=== PATIENT | female | born 1945 | race Caucasian/White ===

== ENCOUNTER → 2016-11-12 | Outpatient (CLI) | payer MEDICARE, OTHER ==
[2016-11-12 15:26] LABS: ALBUMIN 3.4 GM/DL (3.2-5.2); ALBUMIN/GLOBULIN RATIO 0.97 (1.00-1.93); BILIRUBIN,TOTAL 0.4 MG/DL (0.2-1.0); CALCIUM LEVEL 9.3 MG/DL (8.8-10.2); CREATININE FOR GFR 0.97 MG/DL (0.55-1.02); GLOMERULAR FILTRATION RATE 59.9 (>39); POTASSIUM SERUM 4.5 MEQ/L (3.5-5.1); TOTAL PROTEIN 6.9 GM/DL (6.4-8.2)
== END ==
LOC: M WUC 12:34
PROVIDERS: ATTEND Internal Medicine
DX: E11.9 Type 2 diabetes mellitus without complications (principal)

== ENCOUNTER → 2017-05-09 | Outpatient (REF) | payer MEDICARE, OTHER | LOC: M SFHCPLAZ 12:51 | PROVIDERS: ATTEND Nurse Practitioner Adult Health | DX: R35.0 Frequency of micturition (principal) | CPT/HCPCS: 81002; 87086; G0463 ==

== ENCOUNTER → 2017-05-16 | Outpatient (CLI) | payer MEDICARE, OTHER ==
[2017-05-16 20:35] LABS: MEAN CORPUSCULAR HEMOGLOBIN 29.2 pg (27.0-33.0); MEAN CORPUSCULAR HGB CONC 33.9 g/dl (32.0-36.5); MEAN CORPUSCULAR VOLUME 86.2 fl (80.0-96.0); RED CELL DISTRIBUTION WIDTH 13.1 % (11.5-14.5); WHITE BLOOD COUNT 7.2 K/mm3 (4.0-10.0)
[2017-05-16 20:51] LABS: ALBUMIN 3.6 GM/DL (3.2-5.2); ALBUMIN/GLOBULIN RATIO 1.06 (1.00-1.93); ALKALINE PHOSPHATASE 83 U/L (45-117); ALT/SGPT 27 U/L (12-78); ANION GAP 8 MEQ/L (8-16); AST/SGOT 16 U/L (15-37); BILIRUBIN,TOTAL 0.5 MG/DL (0.2-1.0); BLOOD UREA NITROGEN 22 MG/DL (7-18); CALCIUM LEVEL 9.4 MG/DL (8.8-10.2); CARBON DIOXIDE LEVEL 25 MEQ/L (21-32); CHLORIDE LEVEL 108 MEQ/L (98-107); CHOLESTEROL LEVEL 201 MG/DL (<200); CREATININE FOR GFR 0.87 MG/DL (0.55-1.02); GLOMERULAR FILTRATION RATE > 60.0 (>39); GLUCOSE, FASTING 88 MG/DL (83-110); POTASSIUM SERUM 4.3 MEQ/L (3.5-5.1); SODIUM LEVEL 141 MEQ/L (136-145); TRIGLYCERIDES LEVEL 153 MG/DL (<150)
== END ==
LOC: M WUC 15:21
PROVIDERS: ATTEND Internal Medicine
DX: J30.9 Allergic rhinitis, unspecified (principal); E11.9 Type 2 diabetes mellitus without complications; E78.00 Pure hypercholesterolemia, unspecified; E03.9 Hypothyroidism, unspecified; Z11.59 Encounter for screening for other viral diseases; W57.XXXD Bitten or stung by nonvenomous insect and other nonvenomous arthropods, subsequent encounter; Y93.9 Activity, unspecified; Y92.9 Unspecified place or not applicable; Y99.8 Other external cause status

== ENCOUNTER → 2017-05-16 | Outpatient (CLI) | payer MEDICARE, OTHER ==
[2017-05-19 00:08] LABS: Lyme Disease IgG/IgM Antibodie <0.91 ISR (0.00-0.90); Lyme Disease IgM Ab Quantitati <0.80 index (0.00-0.79)
== END ==
LOC: M WUC 15:25
PROVIDERS: ATTEND Nurse Practitioner Adult Health
DX: Z11.59 Encounter for screening for other viral diseases (principal); W57.XXXD Bitten or stung by nonvenomous insect and other nonvenomous arthropods, subsequent encounter; X58.XXXD Exposure to other specified factors, subsequent encounter; Y93.9 Activity, unspecified; Y92.9 Unspecified place or not applicable; Y99.8 Other external cause status

== ENCOUNTER → 2017-07-10 | Outpatient (REF) | payer MEDICARE, OTHER | LOC: M SFHCPLAZ 16:42 | PROVIDERS: ATTEND Internal Medicine | DX: R53.83 Other fatigue (principal); E03.9 Hypothyroidism, unspecified ==

== ENCOUNTER → 2017-07-16 | Outpatient (CLI) | payer MEDICARE, OTHER ==
--- NOTE | 2017-07-20 06:46 | SLEEPCENT ---
DATE OF PROCEDURE: 07/16/2017 ORDERED BY: Dr. Payan Diagnostic home sleep testing was performed due to concern for the obstructive sleep apnea syndrome. For testng, NOX-T3 respiratory monitoring device. Continuous record was made of pulse, oxygen saturation, air flow, chest and abdominal strain, and body position. 9 hours and 59 minutes of data were reviewed. Of these, 8 hours and 1 minute were marked as time in bed. During the interval marked time in bed, there were 139 respiratory events identified of 10 seconds in duration or greater for a respiratory event index of 17.3. The events were primarily obstructive. Baseline saturation 89%. Lowest oxygen saturation 76%. Baseline pulse rate 62 beats per minute. Pulse rate ranged 55-80. Testing was performed in both the supine and non-supine positions. IMPRESSION: Abnormal home sleep testing with repetitive respiratory events and oxygen desaturations to 76% with a respiratory event index of 17.3 is consistent with the obstructive sleep apnea syndrome. RECOMMENDATION: The patient should be encouraged to undergo formal sleep evaluation and in-laboratory pressure titration particularly in light of oxygen desaturations as there are not addressed by the use of variable home devices.
== END ==
LOC: M SLEEP HO 13:50
PROVIDERS: ATTEND Internal Medicine
DX: R53.83 Other fatigue (principal)

== ENCOUNTER → 2017-07-19 | Outpatient (CLI) | payer MEDICARE, OTHER ==
[2017-07-19 20:29] LABS: VITAMIN B12 LEVEL 838 PG/ML (247-911)
[2017-07-19 20:30] LABS: FOLATE > 24.0 NG/ML (>5.4)
== END ==
LOC: M WUC 17:36
PROVIDERS: ATTEND Internal Medicine
DX: R53.83 Other fatigue (principal); E03.9 Hypothyroidism, unspecified

== ENCOUNTER → 2017-10-25 | Outpatient (CLI) | payer MEDICARE, OTHER | LOC: M SLEEP 19:47 | DX: G47.33 Obstructive sleep apnea (adult) (pediatric) (principal) | CPT/HCPCS: 95811 ==

== ENCOUNTER → 2017-11-21 | Outpatient (REF) | payer MEDICARE, OTHER ==
[2017-11-21 13:33] LABS: ESTIMATED AVERAGE GLUCOSE 143 MG/DL (60-110); HEMOGLOBIN A1c 6.6 %
[2017-11-21 13:54] LABS: ALBUMIN 3.6 GM/DL (3.2-5.2); ALBUMIN/GLOBULIN RATIO 0.97 (1.00-1.93); ALKALINE PHOSPHATASE 101 U/L (45-117); ALT/SGPT 26 U/L (12-78); ANION GAP 5 MEQ/L (8-16); AST/SGOT 16 U/L (7-37); BILIRUBIN,TOTAL 0.4 MG/DL (0.2-1.0); BLOOD UREA NITROGEN 21 MG/DL (7-18); CALCIUM LEVEL 9.1 MG/DL (8.8-10.2); CARBON DIOXIDE LEVEL 29 MEQ/L (21-32); CHLORIDE LEVEL 108 MEQ/L (98-107); CHOLESTEROL LEVEL 195 MG/DL (<200); CREATININE FOR GFR 0.82 MG/DL (0.55-1.02); GLOMERULAR FILTRATION RATE > 60.0 (>39); GLUCOSE, FASTING 105 MG/DL (70-100); HDL CHOLESTEROL 37 MG/DL (>40); LDL CHOLESTEROL 117.8 MG/DL (<100); MAGNESIUM LEVEL 2.2 MG/DL (1.8-2.4); NON-HDL-C 158 MG/DL; POTASSIUM SERUM 4.5 MEQ/L (3.5-5.1); SODIUM LEVEL 142 MEQ/L (136-145); THYROID STIMULATING HORMONE 0.424 uIU/ML (0.358-3.740); TOTAL PROTEIN 7.3 GM/DL (6.4-8.2); TRIGLYCERIDES LEVEL 201 MG/DL (<150)
[2017-11-21 14:22] LABS: APPEARANCE, URINE HAZY (CLEAR); BACTERIA, URINE AUTO 1+ (NEGATIVE); BILIRUBIN, URINE AUTO NEGATIVE (NEGATIVE); BLOOD, URINE BLOOD NEGATIVE (NEGATIVE); COLOR, URINE YELLOW (YELLOW); GLUCOSE, URINE (UA) AUTO NEGATIVE (NEGATIVE); KETONE, URINE AUTO NEGATIVE (NEGATIVE); LEUKOCYTE ESTERASE, URINE AUTO 3+ (NEGATIVE); MUCUS, URINE SMALL (NEGATIVE); NITRITE, URINE AUTO NEGATIVE (NEGATIVE); PROTEIN, URINE AUTO NEGATIVE (NEGATIVE); RBC, URINE AUTO 4 /HPF (0-3); SQUAMOUS EPITHELIAL CELL UR AU 1 /HPF (0-6); TRANSITIONAL EPITHELIAL AUTO 1 /HPF; UROBILINOGEN, URINE AUTO 0.2 mg/dL (0.0-2.0); WBC, URINE AUTO 18 /HPF (0-3)
[2017-11-21 14:36] LABS: MAU/CREAT RATIO 11.5 MCG/MG (0.0-30.0)
[2017-11-21 22:03] LABS: TOTAL 25(OH) VITAMIN D 76.4 NG/ML (30.0-100.0)
== END ==
LOC: M SFHCPLAZ 11:16
DX: Z00.00 Encounter for general adult medical examination without abnormal findings (principal); N32.89 Other specified disorders of bladder; E11.9 Type 2 diabetes mellitus without complications; R60.0 Localized edema; E78.00 Pure hypercholesterolemia, unspecified; E55.9 Vitamin D deficiency, unspecified; E03.9 Hypothyroidism, unspecified; Z79.82 Long term (current) use of aspirin; Z79.899 Other long term (current) drug therapy
CPT/HCPCS: 83735

== ENCOUNTER → 2018-01-03 | Outpatient (CLI) | payer MEDICARE, OTHER ==
[2018-01-03 19:23] LABS: HEMATOCRIT 44.1 % (36.0-47.0); HEMOGLOBIN 14.1 g/dl (12.0-16.0); MEAN CORPUSCULAR HEMOGLOBIN 28.2 pg (27.0-33.0); MEAN CORPUSCULAR VOLUME 88.2 fl (80.0-96.0); PLATELET COUNT, AUTOMATED 233 10^3/uL (150-450); RED CELL DISTRIBUTION WIDTH 13.1 % (11.5-14.5); WHITE BLOOD COUNT 6.8 10^3/uL (4.0-10.0)
[2018-01-03 19:33] LABS: ANION GAP 8 MEQ/L (8-16); BLOOD UREA NITROGEN 25 MG/DL (7-18); CALCIUM LEVEL 9.6 MG/DL (8.8-10.2); CARBON DIOXIDE LEVEL 28 MEQ/L (21-32); CHLORIDE LEVEL 111 MEQ/L (98-107); CREATININE FOR GFR 1.07 MG/DL (0.55-1.30); GLOMERULAR FILTRATION RATE 53.4 (>39); GLUCOSE, FASTING 114 MG/DL (70-100); POTASSIUM SERUM 4.2 MEQ/L (3.5-5.1); SODIUM LEVEL 147 MEQ/L (136-145)
== END ==
LOC: M WUC 15:34
DX: J32.0 Chronic maxillary sinusitis (principal)
CPT/HCPCS: 80048

== ENCOUNTER → 2018-05-17 | Outpatient (CLI) | payer MEDICARE, OTHER ==
[2018-05-17 13:02] LABS: HEMATOCRIT 42.7 % (36.0-47.0); HEMOGLOBIN 13.9 g/dl (12.0-15.5); MEAN CORPUSCULAR HEMOGLOBIN 28.2 pg (27.0-33.0); MEAN CORPUSCULAR HGB CONC 32.6 g/dl (32.0-36.5); MEAN CORPUSCULAR VOLUME 86.6 fl (80.0-96.0); PLATELET COUNT, AUTOMATED 210 10^3/uL (150-450); RED BLOOD COUNT 4.93 10^6/uL (4.00-5.40); RED CELL DISTRIBUTION WIDTH 13.6 % (11.5-14.5); WHITE BLOOD COUNT 6.9 10^3/uL (4.0-10.0)
[2018-05-17 13:18] LABS: ALBUMIN 3.4 GM/DL (3.2-5.2); ALBUMIN/GLOBULIN RATIO 0.97 (1.00-1.93); ALKALINE PHOSPHATASE 93 U/L (45-117); ALT/SGPT 26 U/L (12-78); ANION GAP 7 MEQ/L (8-16); AST/SGOT 15 U/L (7-37); BILIRUBIN,TOTAL 0.3 MG/DL (0.2-1.0); BLOOD UREA NITROGEN 18 MG/DL (7-18); CARBON DIOXIDE LEVEL 29 MEQ/L (21-32); CHLORIDE LEVEL 108 MEQ/L (98-107); CHOLESTEROL LEVEL 194 MG/DL (<200); CHOLESTEROL RISK RATIO 5.105 (<5); CREATININE FOR GFR 0.96 MG/DL (0.55-1.30); GLOMERULAR FILTRATION RATE > 60.0 (>39); GLUCOSE, FASTING 118 MG/DL (70-100); HDL CHOLESTEROL 38 MG/DL (>40); LDL CHOLESTEROL 116.4 MG/DL (<100); NON-HDL-C 156 MG/DL; POTASSIUM SERUM 4.4 MEQ/L (3.5-5.1); SODIUM LEVEL 144 MEQ/L (136-145); TOTAL PROTEIN 6.9 GM/DL (6.4-8.2); TRIGLYCERIDES LEVEL 198 MG/DL (<150)
[2018-05-17 13:29] LABS: ESTIMATED AVERAGE GLUCOSE 146 MG/DL (60-110); HEMOGLOBIN A1c 6.7 %
== END ==
LOC: M WUC 09:10
DX: J30.9 Allergic rhinitis, unspecified (principal); E11.9 Type 2 diabetes mellitus without complications; E78.00 Pure hypercholesterolemia, unspecified; G47.33 Obstructive sleep apnea (adult) (pediatric)
CPT/HCPCS: 80053

== ENCOUNTER → 2018-07-03 | Outpatient (CLI) | payer MEDICARE, OTHER | LOC: M WUC 17:23 | DX: R06.02 Shortness of breath (principal) | CPT/HCPCS: 71046 ==

== ENCOUNTER 2018-07-04 11:43 | Inpatient (IN) | payer MEDICARE, OTHER ==
[2018-07-04] MEDS: ONDANSETRON 4MG/2ML VIAL (J2405) IV (12:00)
[2018-07-04] MEDS: NS 500 ML IV (12:00)
[2018-07-04 12:15] LABS: VENOUS BASE EXCESS -0.1 (-2.0-2.0); VENOUS HCO3 25.3 MEQ/L (23.0-27.0); VENOUS O2 SATURATION 83.4 % (60.0-80.0); VENOUS PARTIAL PRESSURE CO2 43.8 mmHg (38.0-50.0); VENOUS PARTIAL PRESSURE O2 46.9 mmHg (30.0-50.0); VENOUS PH 7.379 UNITS (7.330-7.430); VENOUS STANDARD HCO3 24.1 MEQ/L; VENOUS TOTAL CO2 26.6 MEQ/L (24.0-28.0)
[2018-07-04 12:16] LABS: BASO % 0.4 % (0.0-1.0); EOS # 0.1 10^3/uL (0.0-0.50); HEMATOCRIT 37.9 % (36.0-47.0); HEMOGLOBIN 12.5 g/dl (12.0-15.5); IMMATURE GRANULOCYTE % 0.4 % (0-3.0); LYMPH # 0.5 10^3/uL (1.5-4.5); LYMPH % 9.3 % (24.0-44.0); MEAN CORPUSCULAR HEMOGLOBIN 28.7 pg (27.0-33.0); MEAN CORPUSCULAR VOLUME 86.9 fl (80.0-96.0); MONO # 1.8 10^3/uL (0.0-0.8); MONO % 33.7 % (0.0-5.0); NEUTROPHILS # 2.9 10^3/uL (1.8-7.7); NEUTROPHILS % 55.2 % (36.0-66.0); PLATELET COUNT, AUTOMATED 169 10^3/uL (150-450); RED BLOOD COUNT 4.36 10^6/uL (4.00-5.40); RED CELL DISTRIBUTION WIDTH 13.3 % (11.5-14.5); WHITE BLOOD COUNT 5.3 10^3/uL (4.0-10.0)
[2018-07-04 12:33] LABS: PROTHROMBIN TIME 14.3 SECONDS (12.1-14.4)
[2018-07-04 12:46] LABS: LACTIC ACID SEPSIS PROTOCOL 1.2 MMOL/L (0.4-2.0)
[2018-07-04 12:46] LABS: ALBUMIN 3.1 GM/DL (3.2-5.2); ALBUMIN/GLOBULIN RATIO 0.82 (1.00-1.93); ALKALINE PHOSPHATASE 91 U/L (45-117); ALT/SGPT 30 U/L (12-78); ANION GAP 12 MEQ/L (8-16); AST/SGOT 22 U/L (7-37); BILIRUBIN,DIRECT < 0.1 MG/DL (0.0-0.2); BILIRUBIN,TOTAL 0.3 MG/DL (0.2-1.0); BLOOD UREA NITROGEN 18 MG/DL (7-18); CALCIUM LEVEL 8.5 MG/DL (8.8-10.2); CARBON DIOXIDE LEVEL 24 MEQ/L (21-32); CHLORIDE LEVEL 105 MEQ/L (98-107); CPK CREATINE PHOSPHOKINASE 214 U/L (26-192); CREATININE FOR GFR 0.97 MG/DL (0.55-1.30); GLOMERULAR FILTRATION RATE 59.8 (>39); GLUCOSE, FASTING 139 MG/DL (70-100); POTASSIUM SERUM 3.6 MEQ/L (3.5-5.1); SODIUM LEVEL 141 MEQ/L (136-145); TOTAL PROTEIN 6.9 GM/DL (6.4-8.2); TROPONIN I 0.02 NG/ML (< 0.10)
[2018-07-04 12:52] LABS: CK-MB VALUE MASS < 1.0 NG/ML (<3.6); MB/CK RELATIVE INDEX 0.46 (< OR =4); NT-PRO BNP 1754 PG/ML (<125); THYROID STIMULATING HORMONE 0.272 uIU/ML (0.358-3.740)
[2018-07-04] MEDS: MORPHINE 2 MG/ML 1ML SYRINGE (J2270) IV ×2 (12:56→14:30)
[2018-07-04] MEDS ORDERED: ISOVUE-370 76% 100ML VIAL (Q9967) As Ordered (13:10)
[2018-07-04] MEDS: ALBUTEROL SULFATE 2.5 MG/0.5 ML INH NEB SOLN INH (13:18)
[2018-07-04] MEDS ORDERED: GLUCAGON FOR INJ 1 MG VIAL (J1610) SC (16:15)
[2018-07-04] MEDS ORDERED: ACETAMINOPHEN TAB 650MG DOSE (2X325MG) PO (16:15)
[2018-07-04] MEDS ORDERED: DEXTROSE 50% 50 ML SYRINGE IV (16:15)
[2018-07-04] MEDS ORDERED: PERCOCET 5MG/325MG TAB PO (16:15)
[2018-07-04] MEDS ORDERED: GLUCOSE 4 GM CHEW TABLET PO (16:15)
[2018-07-04] MEDS ORDERED: PANTOPRAZOLE 40MG TAB (PROTONIX) PO (16:15)
[2018-07-04] MEDS ORDERED: ALBUTEROL SULFATE 2.5 MG/0.5 ML INH NEB SOLN NEB (16:15)
[2018-07-04 16:34] LABS: CONTROL LINE MONO INT CTR LINE PRESENT; MONO SCRN NEGATIVE (NEGATIVE)
[2018-07-04 16:40] LABS: C REACTIVE PROTEIN QUANTITATIV 2.05 MG/DL (0.00-0.30); FREE THYROXINE INDEX 2.6 % (1.3-4.8); IMMUNOGLOBULIN E 35.5 IU/ML (<100); T UPTAKE 36 % (30-39); THYROXINE (T4) 7.1 UG/DL (4.5-12.0)
[2018-07-04 17:14] LABS: CK-MB VALUE MASS < 1.0 NG/ML (<3.6); CPK CREATINE PHOSPHOKINASE 276 U/L (26-192); MB/CK RELATIVE INDEX 0.36 (< OR =4); TROPONIN I 0.02 NG/ML (< 0.10)
[2018-07-04] MEDS: HumaLOG INSULIN (NovoLOG) PER UNIT SC (17:30)
[2018-07-04] MEDS: methylPREDNISolone INJ 125 MG/2 ML VIAL (J2930) IV (18:29)
[2018-07-04 20:25] LABS: BEDSIDE GLUCOSE 100 MG/DL (83-110)
[2018-07-04] MEDS: ALBUTEROL SULFATE 2.5 MG/0.5 ML INH NEB SOLN NEB (20:35)
[2018-07-04] MEDS: guaiFENesin ER 600 MG TAB PO (21:10)
[2018-07-04] MEDS: BENZONATATE 100 MG CAP PO (21:11)
[2018-07-04] MEDS: MORPHINE 4 MG/ML 1ML VIAL/SYRINGE (J2270) IV (21:12)
[2018-07-04] MEDS: SENOKOT S TAB PO (21:13)
[2018-07-04] MEDS: TIMOLOL MALEATE 0.5% OPHTH SOLN 5 ML OU (22:21)
[2018-07-04 22:50] LABS: CK-MB VALUE MASS < 1.0 NG/ML (<3.6); CPK CREATINE PHOSPHOKINASE 299 U/L (26-192); MB/CK RELATIVE INDEX 0.33 (< OR =4); TROPONIN I < 0.02 NG/ML (< 0.10)
[2018-07-05] MEDS: ALBUTEROL SULFATE 2.5 MG/0.5 ML INH NEB SOLN NEB ×6 (00:27→21:03)
[2018-07-05] MEDS: MORPHINE 4 MG/ML 1ML VIAL/SYRINGE (J2270) IV (04:30)
[2018-07-05 06:03] LABS: HEMATOCRIT 37.8 % (36.0-47.0); HEMOGLOBIN 12.4 g/dl (12.0-15.5); MEAN CORPUSCULAR HEMOGLOBIN 28.2 pg (27.0-33.0); MEAN CORPUSCULAR HGB CONC 32.8 g/dl (32.0-36.5); MEAN CORPUSCULAR VOLUME 85.9 fl (80.0-96.0); PLATELET COUNT, AUTOMATED 166 10^3/uL (150-450); RED CELL DISTRIBUTION WIDTH 13.4 % (11.5-14.5); WHITE BLOOD COUNT 3.9 10^3/uL (4.0-10.0)
[2018-07-05 06:18] LABS: ANION GAP 9 MEQ/L (8-16); BLOOD UREA NITROGEN 15 MG/DL (7-18); CALCIUM LEVEL 8.5 MG/DL (8.8-10.2); CARBON DIOXIDE LEVEL 25 MEQ/L (21-32); CHLORIDE LEVEL 106 MEQ/L (98-107); CREATININE FOR GFR 0.89 MG/DL (0.55-1.30); GLOMERULAR FILTRATION RATE > 60.0 (>39); GLUCOSE, FASTING 179 MG/DL (70-100); POTASSIUM SERUM 4.2 MEQ/L (3.5-5.1); SODIUM LEVEL 140 MEQ/L (136-145)
[2018-07-05] MEDS: LEVOTHYROXINE 150MCG TABLET (0.15MG) PO (06:24)
[2018-07-05] MEDS: methylPREDNISolone INJ 125 MG/2 ML VIAL (J2930) IV ×2 (06:24→17:39)
[2018-07-05] MEDS: BENZONATATE 100 MG CAP PO (06:38)
[2018-07-05] MEDS: FIORICET TAB PO (06:39)
[2018-07-05 06:52] LABS: ESTIMATED AVERAGE GLUCOSE 146 MG/DL (60-110); HEMOGLOBIN A1c 6.7 %
[2018-07-05] MEDS: BUDESONIDE 0.25 MG/2 ML INHALATION SUSPENSION INH (07:19)
[2018-07-05] MEDS: guaiFENesin ER 600 MG TAB PO ×3 (09:00→20:44)
[2018-07-05] MEDS: HumaLOG INSULIN (NovoLOG) PER UNIT SC ×3 (09:56→17:39)
[2018-07-05] MEDS: CO-ENZYME Q10 50 MG CAP PO (09:56)
[2018-07-05] MEDS: OMEGA-3 1050MG CAPSULE PO (09:57)
[2018-07-05] MEDS: CYANOCOBALAMIN 500 MCG TAB PO (09:57)
[2018-07-05] MEDS: VITAMIN D 1,000 INTERNATIONAL UNITS TABLET PO (09:57)
[2018-07-05] MEDS: ASPIRIN 325 MG TAB PO (09:57)
[2018-07-05] MEDS: MULTIVITAMINS/MINERALS THERAP 1 TAB PO (09:57)
[2018-07-05] MEDS: SENOKOT S TAB PO ×3 (09:57→20:45)
[2018-07-05] MEDS: TIMOLOL MALEATE 0.5% OPHTH SOLN 5 ML OU ×2 (09:58→20:45)
[2018-07-05] MEDS: ENOXAPARIN 40 MG/0.4 ML SYRINGE (J1650) SC (09:58)
[2018-07-05 11:33] LABS: BEDSIDE GLUCOSE 292 MG/DL (83-110)
[2018-07-05] MEDS: OSELTAMIVIR PHOSPHATE 75 MG CAP (TAMIFLU) PO ×2 (13:10→20:45)
[2018-07-05] MEDS: VITAMIN D 50,000 UNITS CAPSULE (ERGOCALCIFEROL 1.25MG) PO (13:10)
[2018-07-05] MEDS: ONDANSETRON 4MG/2ML VIAL (J2405) IV (17:39)
[2018-07-05] MEDS ORDERED: DEXTROMETHORPHAN 60MG/10ML SUSP 90ML BTL(DELSYM) PO (21:15)
[2018-07-06] MEDS: ALBUTEROL SULFATE 2.5 MG/0.5 ML INH NEB SOLN NEB ×6 (04:00→20:05)
[2018-07-06] MEDS: methylPREDNISolone INJ 125 MG/2 ML VIAL (J2930) IV (05:55)
[2018-07-06] MEDS: LEVOTHYROXINE 150MCG TABLET (0.15MG) PO (05:55)
[2018-07-06 05:59] LABS: HEMOGLOBIN 13.4 g/dl (12.0-15.5); MEAN CORPUSCULAR HEMOGLOBIN 28.3 pg (27.0-33.0); MEAN CORPUSCULAR HGB CONC 32.7 g/dl (32.0-36.5); MEAN CORPUSCULAR VOLUME 86.5 fl (80.0-96.0); PLATELET COUNT, AUTOMATED 185 10^3/uL (150-450); RED BLOOD COUNT 4.74 10^6/uL (4.00-5.40); RED CELL DISTRIBUTION WIDTH 13.4 % (11.5-14.5)
[2018-07-06 06:11] LABS: ANION GAP 9 MEQ/L (8-16); BLOOD UREA NITROGEN 22 MG/DL (7-18); CALCIUM LEVEL 9.5 MG/DL (8.8-10.2); CARBON DIOXIDE LEVEL 25 MEQ/L (21-32); CHLORIDE LEVEL 108 MEQ/L (98-107); CREATININE FOR GFR 1.06 MG/DL (0.55-1.30); GLOMERULAR FILTRATION RATE 53.9 (>39); GLUCOSE, FASTING 204 MG/DL (70-100); MAGNESIUM LEVEL 2.3 MG/DL (1.8-2.4); POTASSIUM SERUM 4.3 MEQ/L (3.5-5.1); SODIUM LEVEL 142 MEQ/L (136-145)
[2018-07-06] MEDS: BUDESONIDE 0.25 MG/2 ML INHALATION SUSPENSION INH (07:37)
[2018-07-06] MEDS: TIMOLOL MALEATE 0.5% OPHTH SOLN 5 ML OU ×2 (08:46→19:58)
[2018-07-06] MEDS: OMEGA-3 1050MG CAPSULE PO (08:47)
[2018-07-06] MEDS: CO-ENZYME Q10 50 MG CAP PO (08:47)
[2018-07-06] MEDS: ASPIRIN 325 MG TAB PO (08:47)
[2018-07-06] MEDS: CYANOCOBALAMIN 500 MCG TAB PO (08:48)
[2018-07-06] MEDS: OSELTAMIVIR PHOSPHATE 75 MG CAP (TAMIFLU) PO ×2 (08:48→19:57)
[2018-07-06] MEDS: SENOKOT S TAB PO ×2 (08:48→19:57)
[2018-07-06] MEDS: MULTIVITAMINS/MINERALS THERAP 1 TAB PO (08:48)
[2018-07-06] MEDS: VITAMIN D 1,000 INTERNATIONAL UNITS TABLET PO (08:49)
[2018-07-06] MEDS: ENOXAPARIN 40 MG/0.4 ML SYRINGE (J1650) SC (08:50)
[2018-07-06] MEDS: HumaLOG INSULIN (NovoLOG) PER UNIT SC ×3 (09:18→18:31)
[2018-07-06] MEDS: predniSONE 20 MG TAB PO (10:50)
[2018-07-07] MEDS: ALBUTEROL SULFATE 2.5 MG/0.5 ML INH NEB SOLN NEB ×6 (04:00→21:40)
[2018-07-07] MEDS: LEVOTHYROXINE 150MCG TABLET (0.15MG) PO (05:31)
[2018-07-07 06:18] LABS: HEMATOCRIT 38.6 % (36.0-47.0); HEMOGLOBIN 12.5 g/dl (12.0-15.5); MEAN CORPUSCULAR HEMOGLOBIN 28.3 pg (27.0-33.0); MEAN CORPUSCULAR HGB CONC 32.4 g/dl (32.0-36.5); MEAN CORPUSCULAR VOLUME 87.5 fl (80.0-96.0); PLATELET COUNT, AUTOMATED 178 10^3/uL (150-450); RED BLOOD COUNT 4.41 10^6/uL (4.00-5.40); RED CELL DISTRIBUTION WIDTH 13.8 % (11.5-14.5)
[2018-07-07 06:34] LABS: ANION GAP 7 MEQ/L (8-16); BLOOD UREA NITROGEN 26 MG/DL (7-18); CALCIUM LEVEL 9.2 MG/DL (8.8-10.2); CARBON DIOXIDE LEVEL 25 MEQ/L (21-32); CHLORIDE LEVEL 109 MEQ/L (98-107); CREATININE FOR GFR 0.83 MG/DL (0.55-1.30); GLOMERULAR FILTRATION RATE > 60.0 (>39); GLUCOSE, FASTING 113 MG/DL (70-100); MAGNESIUM LEVEL 2.3 MG/DL (1.8-2.4); POTASSIUM SERUM 4.1 MEQ/L (3.5-5.1); SODIUM LEVEL 141 MEQ/L (136-145)
[2018-07-07 07:33] LABS: BEDSIDE GLUCOSE 112 MG/DL (83-110)
[2018-07-07 07:34] LABS: BEDSIDE GLUCOSE 280 MG/DL (83-110)
[2018-07-07 07:34] LABS: BEDSIDE GLUCOSE 187 MG/DL (83-110)
[2018-07-07 07:34] LABS: BEDSIDE GLUCOSE 123 MG/DL (83-110)
[2018-07-07 07:35] LABS: BEDSIDE GLUCOSE 112 MG/DL (83-110)
[2018-07-07] MEDS: BUDESONIDE 0.25 MG/2 ML INHALATION SUSPENSION INH (07:42)
[2018-07-07] MEDS: CYANOCOBALAMIN 500 MCG TAB PO (08:16)
[2018-07-07] MEDS: CO-ENZYME Q10 50 MG CAP PO (08:16)
[2018-07-07] MEDS: ASPIRIN 325 MG TAB PO (08:16)
[2018-07-07] MEDS: predniSONE 20 MG TAB PO (08:16)
[2018-07-07] MEDS: OSELTAMIVIR PHOSPHATE 75 MG CAP (TAMIFLU) PO ×2 (08:16→21:13)
[2018-07-07] MEDS: OMEGA-3 1050MG CAPSULE PO (08:16)
[2018-07-07] MEDS: VITAMIN D 1,000 INTERNATIONAL UNITS TABLET PO (08:16)
[2018-07-07] MEDS: SENOKOT S TAB PO ×2 (08:16→21:13)
[2018-07-07] MEDS: HumaLOG INSULIN (NovoLOG) PER UNIT SC ×3 (08:17→17:47)
[2018-07-07] MEDS: MULTIVITAMINS/MINERALS THERAP 1 TAB PO (08:17)
[2018-07-07] MEDS: ENOXAPARIN 40 MG/0.4 ML SYRINGE (J1650) SC (08:17)
[2018-07-07] MEDS: TIMOLOL MALEATE 0.5% OPHTH SOLN 5 ML OU ×2 (08:17→21:14)
[2018-07-07] MEDS: ONDANSETRON 4MG/2ML VIAL (J2405) IV (08:30)
[2018-07-07] MEDS: METAMUCIL (PSYLLIUM) PACKET PO (21:52)
[2018-07-08] MEDS: ALBUTEROL SULFATE 2.5 MG/0.5 ML INH NEB SOLN NEB ×6 (04:00→20:34)
[2018-07-08] MEDS: LEVOTHYROXINE 150MCG TABLET (0.15MG) PO (05:35)
[2018-07-08 07:17] LABS: HEMATOCRIT 39.1 % (36.0-47.0); HEMOGLOBIN 12.6 g/dl (12.0-15.5); MEAN CORPUSCULAR HEMOGLOBIN 28.3 pg (27.0-33.0); MEAN CORPUSCULAR HGB CONC 32.2 g/dl (32.0-36.5); MEAN CORPUSCULAR VOLUME 87.7 fl (80.0-96.0); PLATELET COUNT, AUTOMATED 165 10^3/uL (150-450); RED BLOOD COUNT 4.46 10^6/uL (4.00-5.40); RED CELL DISTRIBUTION WIDTH 13.6 % (11.5-14.5); WHITE BLOOD COUNT 8.5 10^3/uL (4.0-10.0)
[2018-07-08] MEDS: HumaLOG INSULIN (NovoLOG) PER UNIT SC ×3 (07:30→17:32)
[2018-07-08 07:33] LABS: ANION GAP 8 MEQ/L (8-16); BLOOD UREA NITROGEN 19 MG/DL (7-18); CALCIUM LEVEL 8.6 MG/DL (8.8-10.2); CARBON DIOXIDE LEVEL 27 MEQ/L (21-32); CHLORIDE LEVEL 108 MEQ/L (98-107); CREATININE FOR GFR 0.82 MG/DL (0.55-1.30); GLOMERULAR FILTRATION RATE > 60.0 (>39); GLUCOSE, FASTING 100 MG/DL (70-100); MAGNESIUM LEVEL 2.1 MG/DL (1.8-2.4); SODIUM LEVEL 143 MEQ/L (136-145)
[2018-07-08] MEDS: BUDESONIDE 0.25 MG/2 ML INHALATION SUSPENSION INH (07:59)
[2018-07-08] MEDS: VITAMIN D 1,000 INTERNATIONAL UNITS TABLET PO (08:27)
[2018-07-08] MEDS: MULTIVITAMINS/MINERALS THERAP 1 TAB PO (08:27)
[2018-07-08] MEDS: SENOKOT S TAB PO ×2 (08:27→21:12)
[2018-07-08] MEDS: OSELTAMIVIR PHOSPHATE 75 MG CAP (TAMIFLU) PO ×2 (08:27→21:12)
[2018-07-08] MEDS: CO-ENZYME Q10 50 MG CAP PO (08:27)
[2018-07-08] MEDS: predniSONE 20 MG TAB PO (08:27)
[2018-07-08] MEDS: ASPIRIN 325 MG TAB PO (08:27)
[2018-07-08] MEDS: TIMOLOL MALEATE 0.5% OPHTH SOLN 5 ML OU ×2 (08:28→21:00)
[2018-07-08] MEDS: CYANOCOBALAMIN 500 MCG TAB PO (08:28)
[2018-07-08] MEDS: ENOXAPARIN 40 MG/0.4 ML SYRINGE (J1650) SC (08:28)
[2018-07-08] MEDS: OMEGA-3 1050MG CAPSULE PO (08:28)
[2018-07-08] MEDS: METAMUCIL (PSYLLIUM) PACKET PO (18:50)
[2018-07-09] MEDS: ALBUTEROL SULFATE 2.5 MG/0.5 ML INH NEB SOLN NEB ×6 (03:38→21:26)
[2018-07-09 06:15] LABS: HEMATOCRIT 38.8 % (36.0-47.0); HEMOGLOBIN 12.7 g/dl (12.0-15.5); MEAN CORPUSCULAR HEMOGLOBIN 28.3 pg (27.0-33.0); MEAN CORPUSCULAR HGB CONC 32.7 g/dl (32.0-36.5); MEAN CORPUSCULAR VOLUME 86.6 fl (80.0-96.0); PLATELET COUNT, AUTOMATED 179 10^3/uL (150-450); RED BLOOD COUNT 4.48 10^6/uL (4.00-5.40); RED CELL DISTRIBUTION WIDTH 13.5 % (11.5-14.5); WHITE BLOOD COUNT 6.3 10^3/uL (4.0-10.0)
[2018-07-09] MEDS: LEVOTHYROXINE 150MCG TABLET (0.15MG) PO (06:16)
[2018-07-09 06:35] LABS: ANION GAP 7 MEQ/L (8-16); BLOOD UREA NITROGEN 14 MG/DL (7-18); CALCIUM LEVEL 8.9 MG/DL (8.8-10.2); CARBON DIOXIDE LEVEL 29 MEQ/L (21-32); CHLORIDE LEVEL 105 MEQ/L (98-107); GLOMERULAR FILTRATION RATE > 60.0 (>39); GLUCOSE, FASTING 98 MG/DL (70-100); MAGNESIUM LEVEL 2.1 MG/DL (1.8-2.4); POTASSIUM SERUM 3.8 MEQ/L (3.5-5.1); SODIUM LEVEL 141 MEQ/L (136-145)
[2018-07-09] MEDS: BUDESONIDE 0.25 MG/2 ML INHALATION SUSPENSION INH (07:09)
[2018-07-09] MEDS: HumaLOG INSULIN (NovoLOG) PER UNIT SC ×3 (08:01→16:49)
[2018-07-09] MEDS: SENOKOT S TAB PO ×2 (08:31→20:43)
[2018-07-09] MEDS: OMEGA-3 1050MG CAPSULE PO (08:31)
[2018-07-09] MEDS: CYANOCOBALAMIN 500 MCG TAB PO (08:31)
[2018-07-09] MEDS: MULTIVITAMINS/MINERALS THERAP 1 TAB PO (08:31)
[2018-07-09] MEDS: ASPIRIN 325 MG TAB PO (08:31)
[2018-07-09] MEDS: predniSONE 20 MG TAB PO (08:31)
[2018-07-09] MEDS: CO-ENZYME Q10 50 MG CAP PO (08:31)
[2018-07-09] MEDS: ENOXAPARIN 40 MG/0.4 ML SYRINGE (J1650) SC (08:31)
[2018-07-09] MEDS: VITAMIN D 1,000 INTERNATIONAL UNITS TABLET PO (08:31)
[2018-07-09] MEDS: OSELTAMIVIR PHOSPHATE 75 MG CAP (TAMIFLU) PO (08:31)
[2018-07-09] MEDS: TIMOLOL MALEATE 0.5% OPHTH SOLN 5 ML OU ×2 (08:32→20:43)
[2018-07-09] MEDS: MIRALAX *UNIT DOSE* 17GM PACKET PO (12:07)
[2018-07-09] MEDS: MOM 30ML SUSPENSION UDC PO (16:50)
[2018-07-09] MEDS: MAGNESIUM CITRATE 300 ML BTL PO (17:17)
[2018-07-09 17:41] LABS: BEDSIDE GLUCOSE 255 MG/DL (83-110)
[2018-07-09 17:41] LABS: BEDSIDE GLUCOSE 194 MG/DL (83-110)
[2018-07-09 17:41] LABS: BEDSIDE GLUCOSE 124 MG/DL (83-110)
[2018-07-09 17:41] LABS: BEDSIDE GLUCOSE 229 MG/DL (83-110)
[2018-07-09 17:42] LABS: BEDSIDE GLUCOSE 243 MG/DL (83-110)
[2018-07-09 17:42] LABS: BEDSIDE GLUCOSE 224 MG/DL (83-110)
[2018-07-09] MEDS: **hydrALAZINE** 10 MG TAB PO (22:08)
[2018-07-10] MEDS: FUROSEMIDE 20 MG/2 ML VIAL (J1940) IV (00:26)
[2018-07-10] MEDS: ALBUTEROL SULFATE 2.5 MG/0.5 ML INH NEB SOLN NEB ×3 (04:00→08:00)
[2018-07-10] MEDS: LEVOTHYROXINE 150MCG TABLET (0.15MG) PO (05:40)
[2018-07-10 06:45] LABS: HEMATOCRIT 40.5 % (36.0-47.0); HEMOGLOBIN 13.3 g/dl (12.0-15.5); MEAN CORPUSCULAR HEMOGLOBIN 28.2 pg (27.0-33.0); MEAN CORPUSCULAR HGB CONC 32.8 g/dl (32.0-36.5); MEAN CORPUSCULAR VOLUME 85.8 fl (80.0-96.0); PLATELET COUNT, AUTOMATED 203 10^3/uL (150-450); RED BLOOD COUNT 4.72 10^6/uL (4.00-5.40); RED CELL DISTRIBUTION WIDTH 13.3 % (11.5-14.5); WHITE BLOOD COUNT 7.2 10^3/uL (4.0-10.0)
[2018-07-10 07:10] LABS: ANION GAP 9 MEQ/L (8-16); BLOOD UREA NITROGEN 15 MG/DL (7-18); CALCIUM LEVEL 8.9 MG/DL (8.8-10.2); CARBON DIOXIDE LEVEL 30 MEQ/L (21-32); CHLORIDE LEVEL 104 MEQ/L (98-107); CREATININE FOR GFR 0.73 MG/DL (0.55-1.30); GLOMERULAR FILTRATION RATE > 60.0 (>39); GLUCOSE, FASTING 115 MG/DL (70-100); MAGNESIUM LEVEL 2.6 MG/DL (1.8-2.4); SODIUM LEVEL 143 MEQ/L (136-145)
[2018-07-10] MEDS: BUDESONIDE 0.25 MG/2 ML INHALATION SUSPENSION INH (08:00)
[2018-07-10] MEDS: HumaLOG INSULIN (NovoLOG) PER UNIT SC ×3 (08:11→17:26)
[2018-07-10] MEDS: CYANOCOBALAMIN 500 MCG TAB PO (08:11)
[2018-07-10] MEDS: ASPIRIN 325 MG TAB PO (08:11)
[2018-07-10] MEDS: VITAMIN D 1,000 INTERNATIONAL UNITS TABLET PO (08:11)
[2018-07-10] MEDS: SENOKOT S TAB PO ×2 (08:12→19:34)
[2018-07-10] MEDS: TIMOLOL MALEATE 0.5% OPHTH SOLN 5 ML OU ×2 (08:12→19:34)
[2018-07-10] MEDS: OMEGA-3 1050MG CAPSULE PO (08:12)
[2018-07-10] MEDS: MULTIVITAMINS/MINERALS THERAP 1 TAB PO (08:12)
[2018-07-10] MEDS: ENOXAPARIN 40 MG/0.4 ML SYRINGE (J1650) SC (08:12)
[2018-07-10] MEDS: CO-ENZYME Q10 50 MG CAP PO (08:12)
[2018-07-10] MEDS: MIRALAX *UNIT DOSE* 17GM PACKET PO (08:13)
[2018-07-10 16:58] LABS: BEDSIDE GLUCOSE 110 MG/DL (83-110)
[2018-07-10 16:58] LABS: BEDSIDE GLUCOSE 116 MG/DL (83-110)
[2018-07-11] MEDS: ALBUTEROL 90 MCG/ACT 8GM HFA INHALER INH ×2 (04:23→12:00)
[2018-07-11] MEDS: LEVOTHYROXINE 150MCG TABLET (0.15MG) PO (05:44)
[2018-07-11 06:34] LABS: HEMATOCRIT 41.4 % (36.0-47.0); HEMOGLOBIN 13.6 g/dl (12.0-15.5); MEAN CORPUSCULAR HGB CONC 32.9 g/dl (32.0-36.5); MEAN CORPUSCULAR VOLUME 85.2 fl (80.0-96.0); PLATELET COUNT, AUTOMATED 204 10^3/uL (150-450); RED BLOOD COUNT 4.86 10^6/uL (4.00-5.40); RED CELL DISTRIBUTION WIDTH 13.6 % (11.5-14.5); WHITE BLOOD COUNT 8.3 10^3/uL (4.0-10.0)
[2018-07-11 07:00] LABS: ANION GAP 8 MEQ/L (8-16); BLOOD UREA NITROGEN 22 MG/DL (7-18); CARBON DIOXIDE LEVEL 27 MEQ/L (21-32); CHLORIDE LEVEL 105 MEQ/L (98-107); CREATININE FOR GFR 0.82 MG/DL (0.55-1.30); GLOMERULAR FILTRATION RATE > 60.0 (>39); GLUCOSE, FASTING 113 MG/DL (70-100); MAGNESIUM LEVEL 2.7 MG/DL (1.8-2.4); POTASSIUM SERUM 3.9 MEQ/L (3.5-5.1); SODIUM LEVEL 140 MEQ/L (136-145)
[2018-07-11] MEDS: ASPIRIN 325 MG TAB PO (08:00)
[2018-07-11] MEDS: CO-ENZYME Q10 50 MG CAP PO (08:00)
[2018-07-11] MEDS: HumaLOG INSULIN (NovoLOG) PER UNIT SC ×2 (08:00→11:45)
[2018-07-11] MEDS: OMEGA-3 1050MG CAPSULE PO (08:01)
[2018-07-11] MEDS: ENOXAPARIN 40 MG/0.4 ML SYRINGE (J1650) SC (08:01)
[2018-07-11] MEDS: SENOKOT S TAB PO (08:01)
[2018-07-11] MEDS: VITAMIN D 1,000 INTERNATIONAL UNITS TABLET PO (08:01)
[2018-07-11] MEDS: CYANOCOBALAMIN 500 MCG TAB PO (08:01)
[2018-07-11] MEDS: MULTIVITAMINS/MINERALS THERAP 1 TAB PO (08:01)
[2018-07-11] MEDS: MIRALAX *UNIT DOSE* 17GM PACKET PO (08:01)
[2018-07-11] MEDS: TIMOLOL MALEATE 0.5% OPHTH SOLN 5 ML OU (08:01)
[2018-07-11 17:23] LABS: BEDSIDE GLUCOSE 110 MG/DL (83-110)
== END 2018-07-11 12:42 | disposition home or self-care (01) | DRG 195 ==
LOC: M ED 11:43 → M ED INP 16:19 → M MSPAV 17:38
DX: J10.1 Influenza due to other identified influenza virus with other respiratory manifestations (principal); J45.909 Unspecified asthma, uncomplicated; E66.9 Obesity, unspecified; G47.33 Obstructive sleep apnea (adult) (pediatric); E78.5 Hyperlipidemia, unspecified; E03.9 Hypothyroidism, unspecified; Z85.850 Personal history of malignant neoplasm of thyroid; Z88.8 Allergy status to other drugs, medicaments and biological substances; Z88.2 Allergy status to sulfonamides; Z79.899 Other long term (current) drug therapy; Z79.82 Long term (current) use of aspirin; H40.9 Unspecified glaucoma; R73.03 Prediabetes; R00.1 Bradycardia, unspecified

== ENCOUNTER → 2018-11-07 | Outpatient (REF) | payer MEDICARE, OTHER ==
[~2018-11-07] MED LIST: AMOX875T2 PO; ASPI325T PO; COEN100T PO; COQ-50CA2 PO; DRIS50003 PO; FIORCAP3 PO; FISH1000 PO; LEVO150T42 PO; LEVO150T7 PO; LOCO0.1C TOP; PANT40TA3 PO; PRED10PA2 PO; PROAAER10 INH; PROTPAK PO; PULM0.25 INH; PULM0.25 NEB; SYMB16INH INH; TIMO0.5S29 OU; TIMO0.5S42 OP; TRIA1OI TOP; VITA10002 PO; VITA100067 PO; VITA100L PO; VITA200015 PO; VITMTA PO
[2018-11-07 18:01] LABS: IMMUNOGLOBULIN M 31.3 MG/DL (40-230)
[2018-11-13 10:17] LABS: ANCA-ATYPICAL <1:20 titer (Neg:<1:20); ASPERGILLUS FUMIGATUS AB Negative (Negative); AUREOBASIDIUM PULLULANS Negative (Negative); CYTOPLASMIC NEUTROP AB ANCA-C <1:20 titer (Neg:<1:20); MICROPOLYSPORA FAENI AB Negative (Negative); PERINUCLEAR AB ANCA-P <1:20 titer (Neg:<1:20); PIGEON SERUM AB Negative (Negative); THERMOACTINOMYCES SACCHARI Negative (Negative); THERMOACTINOMYCES VULGARIS Negative (Negative)
== END ==
LOC: M LAB REF 16:58
PROVIDERS: ATTEND Internal Medicine Pulmonary Disease
DX: J32.4 Chronic pansinusitis (principal)

== ENCOUNTER → 2019-01-08 | Outpatient (CLI) | payer MEDICARE, OTHER ==
[2019-01-08 15:11] LABS: MALB URINE SIEMENS 22.7 MG/L; MAU/CREAT RATIO 18.1 MCG/MG (0.0-30.0)
[2019-01-08 15:29] LABS: ALBUMIN 3.4 GM/DL (3.2-5.2); ALT/SGPT 30 U/L (12-78); BILIRUBIN,TOTAL 0.5 MG/DL (0.2-1.0); BLOOD UREA NITROGEN 17 MG/DL (7-18); CALCIUM LEVEL 9.1 MG/DL (8.8-10.2); CARBON DIOXIDE LEVEL 27 MEQ/L (21-32); CHLORIDE LEVEL 109 MEQ/L (98-107); CHOLESTEROL LEVEL 203 MG/DL (<200); CHOLESTEROL RISK RATIO 4.951 (<5); CREATININE FOR GFR 0.92 MG/DL (0.55-1.30); GLOMERULAR FILTRATION RATE > 60.0 (>39); GLUCOSE, FASTING 106 MG/DL (70-100); HDL CHOLESTEROL 41 MG/DL (>40); LDL CHOLESTEROL 124 MG/DL (<100); NON-HDL-C 162 MG/DL; POTASSIUM SERUM 5.5 MEQ/L (3.5-5.1); SODIUM LEVEL 143 MEQ/L (136-145); TOTAL PROTEIN 7.2 GM/DL (6.4-8.2); TRIGLYCERIDES LEVEL 189 MG/DL (<150)
[2019-01-08 16:03] LABS: HEMOGLOBIN A1c 6.7 %
== END ==
LOC: M WUC 12:19
PROVIDERS: ATTEND Internal Medicine
DX: E11.9 Type 2 diabetes mellitus without complications (principal); E78.00 Pure hypercholesterolemia, unspecified; E03.9 Hypothyroidism, unspecified
CPT/HCPCS: 36415; 80053; 80061; 82043; 83036; 84443; G0463

== ENCOUNTER → 2019-02-13 | Outpatient (CLI) | payer MEDICARE, OTHER ==
[~2019-02-13] MED LIST changes: +ASPI-1 PO; -ASPI325T PO
[2019-02-13 19:27] LABS: BASO # 0.1 10^3/uL (0.0-0.2); BASO % 0.7 % (0.0-1.0); EOS # 0.2 10^3/uL (0.0-0.50); EOS % 2.3 % (0.0-3.0); HEMATOCRIT 41.3 % (36.0-47.0); HEMOGLOBIN 13.3 g/dl (12.0-15.5); LYMPH # 2.3 10^3/uL (1.5-4.5); LYMPH % 32.8 % (24.0-44.0); MEAN CORPUSCULAR HEMOGLOBIN 27.8 pg (27.0-33.0); MEAN CORPUSCULAR HGB CONC 32.2 g/dl (32.0-36.5); MEAN CORPUSCULAR VOLUME 86.4 fl (80.0-96.0); MONO % 14.5 % (0.0-5.0); NEUTROPHILS # 3.4 10^3/uL (1.8-7.7); NEUTROPHILS % 49.3 % (36.0-66.0); PLATELET COUNT, AUTOMATED 228 10^3/uL (150-450); RED BLOOD COUNT 4.78 10^6/uL (4.00-5.40); WHITE BLOOD COUNT 6.9 10^3/uL (4.0-10.0)
[2019-02-13 19:48] LABS: IMMUNOGLOBULIN E 16.6 IU/ML (<100); IMMUNOGLOBULIN M 35.8 MG/DL (40-230)
[2019-02-21 10:17] LABS: D001-IgE D pteronyssinus <0.10 kU/L (Class 0); E001-IgE Cat Epith/Dander < 0.10 kU/L (Class 0); E005-IgE Dog Dander < 0.10 kU/L (Class 0); G002-IgE Bermuda Grass < 0.10 kU/L (Class 0); G008-IgE Kentucky Bluegrass < 0.10 kU/L (Class 0); M001-IgE Penicillium chrysogen < 0.10 kU/L (Class 0); M002 IgE Cladosporium herbaru < 0.10 kU/L (Class 0); M003 IgE Aspergillus fumigatu < 0.10 kU/L (Class 0); M006-IgE Alternaria alternata < 0.10 kU/L (Class 0); T001-IgE Maple/Box Elder < 0.10 kU/L (Class 0); T003-IgE Common Silver Birch < 0.10 kU/L (Class 0); T006-IgE Cedar, Mountain < 0.10 kU/L (Class 0); T007-IgE Oak, White < 0.10 kU/L (Class 0); T008-IgE Elm, American < 0.10 kU/L (Class 0); T015-IgE Ash, White < 0.10 kU/L (Class 0); T041-IgE Hickory, White < 0.10 kU/L (Class 0); T070-IgE White Mulberry < 0.10 kU/L (Class 0); W001-IgE Ragweed, Short < 0.10 kU/L (Class 0); W009-IgE Plantain, English < 0.10 kU/L (Class 0); W014-IgE Pigweed, Rough < 0.10 kU/L (Class 0); W018-IgE Sheep Sorrel < 0.10 kU/L (Class 0)
== END ==
LOC: M WUC 16:47
PROVIDERS: ATTEND Internal Medicine Pulmonary Disease
DX: G47.33 Obstructive sleep apnea (adult) (pediatric) (principal); Z01.82 Encounter for allergy testing; E11.9 Type 2 diabetes mellitus without complications; E03.9 Hypothyroidism, unspecified; J45.30 Mild persistent asthma, uncomplicated

== ENCOUNTER → 2019-02-28 | Outpatient (CLI) | payer MEDICARE, OTHER ==
--- NOTE | 2019-02-28 18:52 | ECHO ---
DATE OF PROCEDURE: 02/28/2019 REFERRING PHYSICIAN: Polina Sarkar MD INDICATION: Obstructive sleep apnea. HEIGHT: 5 feet 6 inches WEIGHT: 230 pounds 2D MEASUREMENTS: Aortic annulus: 1.8 cm Aortic root: 3.4 cm Left atrium: 4.9 cm Ventricular septum: 1.21 cm Posterior wall: 1.19 cm Left ventricle diastole: 4.9 cm Inferior vena cava: 1.7 cm DOPPLER MEASUREMENTS: Aortic valve velocity: 138 cm/s LVOT velocity: 109 cm/s LVOT VTI: 25.1 cm Mitral E velocity: 100 cm/s Mitral A velocity: 97.0 cm/s Mitral deceleration time: 264 ms Very mild tricuspid regurgitation. Estimated right ventricle systolic pressure: 29 mmHg assuming a pressure of 5 mmHg. MITRAL ANNULAR TISSUE DOPPLER: E prime septal: 5.7 cm/s E prime lateral: 7.7 cm/s DESCRIPTION: Rhythm was sinus bradycardia. Image quality was fair. This was a 2D, M-mode, color flow Doppler and pulse wave Doppler examination and included mitral annular tissue Doppler. No pericardial effusion. CONCLUSIONS: 1. Borderline concentric left ventricle hypertrophy. Normal regional left ventricular (LV) wall motion and wall thickening. Normal LV systolic function. Left ventricular ejection fraction (LVEF) 65% by visual estimate. Grade 2 LV diastolic dysfunction (pseudo-normal LV filling pattern). Suggestive of elevated mean left atrial pressure. 2. Moderate left atrial dilatation. 3. Normal right ventricle size and systolic function. Suggestive of normal estimated right ventricle systolic pressure. 4. Moderate mitral annular calcification. No mitral stenosis or regurgitation. 5. Mild aortic valve sclerosis of a 3-cusp aortic valve. No aortic regurgitation. MTDD
== END ==
LOC: M CARPUL 10:30
PROVIDERS: ATTEND Internal Medicine Pulmonary Disease
DX: R00.1 Bradycardia, unspecified (principal)

== ENCOUNTER → 2019-03-17 | Outpatient (REF) | payer MEDICARE, OTHER ==
[2019-03-17 19:57] LABS: C REACTIVE PROTEIN QUANTITATIV < 0.30 MG/DL (0.00-0.30); COMPLEMENT C3 116 MG/DL (90-180); COMPLEMENT C4 19 MG/DL (10-40); RHEUMATOID FACTOR QUANT < 10.0 IU/ML (<15.0)
[2019-03-20 00:07] LABS: ANA (HEP2) Negative (.); CYCLIC CITRULLINATED PEPTIDE 7 units (0-19); RNP ANTIBODY 0.3 AI (0.0-0.9); SMITHS ANTIBODY < 0.2 AI (0.0-0.9); SSA SJOGRENS A <0.2 AI (0.0-0.9); SSB SJOGRENS B <0.2 AI (0.0-0.9)
== END ==
LOC: M LAB REF 17:25
PROVIDERS: ATTEND Internal Medicine Pulmonary Disease
DX: G47.33 Obstructive sleep apnea (adult) (pediatric) (principal)

== ENCOUNTER 2019-05-26 07:38 | Day surgery (SDC) | payer MEDICARE, OTHER ==
[~2019-05-26] VITALS: Ht 167.6 cm; Wt 103.4 kg
[~2019-05-26 07:38] MED LIST changes: +BREO1INH3 INH; +CYAN100049 PO; +LEVO175T2 PO; +NS 1,000 ML IV ONE; +PULM0.25; -PULM0.25 INH; -VITA10002 PO
[2019-05-26] MEDS ORDERED: ALBUTEROL SULFATE 2.5 MG/0.5 ML INH NEB SOLN As Ordered ONE (08:02)
[2019-05-26] MEDS ORDERED: ALBUTEROL SULFATE 2.5 MG/0.5 ML INH NEB SOLN INH ONE (08:30)
[2019-05-26] MEDS ORDERED: PROPOFOL 200 MG/20 ML VIAL As Ordered ONE ×3 (08:42→09:11)
--- NOTE | 2019-05-26 09:19 | ROOR ---
Patient Name: Blank Lo Procedure Date: 05/26/2019 8:40 AM Date of : 1945 Age: 73 Room: [facility] Gender: Female Note Status: Finalized Procedure: Colonoscopy Indications: Screening for colorectal malignant neoplasm Providers: Dusty MALDONADO MD Referring MD: Jj Payan MD Requesting Provider: Medicines: Monitored Anesthesia Care Complications: No immediate complications. Procedure: Pre-Anesthesia Assessment: - The heart rate, respiratory rate, oxygen saturations, blood pressure, adequacy of pulmonary ventilation, and response to care were monitored throughout the procedure. The Colonoscope was introduced through the anus and advanced to the terminal ileum, with identification of the appendiceal orifice and IC valve. The colonoscopy was technically difficult and complex due to multiple diverticula in the colon, restricted mobility of the colon and a tortuous colon. Successful completion of the procedure was aided by using manual pressure. The patient tolerated the procedure well. The quality of the bowel preparation was good. Findings: The perianal and digital rectal examinations were normal. A 4 mm polyp was found in the cecum. The polyp was sessile. The polyp was removed with a cold snare. Resection and retrieval were complete. A localized area of moderately erythematous mucosa was found at the splenic flexure. This was biopsied with a cold forceps for histology. Multiple small and large-mouthed diverticula were found in the sigmoid colon, descending colon, splenic flexure and transverse colon. There was evidence of diverticular spasm. Small Internal Hemorrhoids. Impression: - One 4 mm polyp in the cecum, removed with a cold snare. Resected and retrieved. - Erythematous granular mucosa at the splenic flexure. Biopsied. - Moderate diverticulosis in the sigmoid colon, in the descending colon, at the splenic flexure and in the transverse colon. There was evidence of diverticular spasm. - Small Internal Hemorrhoids. Recommendation: - Telephone endoscopist for pathology results in 2 weeks. - If the pathology report reveals adenomatous tissue, then repeat the colonoscopy for surveillance in 5 years. Dusty Maldonado MD Dusty MALDONADO MD 05/26/2019 9:19:37 AM Electronically signed by Dusty MALDONADO MD Number of Addenda: 0 Note Initiated On: 05/26/2019 8:40 AM Estimated Blood Loss: Estimated blood loss: none.
[2019-05-26 09:41] VITALS: BP 175/81
[2019-05-27] MEDS ORDERED: MELO15TA28 PO (11:48)
[2019-05-27] MEDS ORDERED: TRAV04OPD OU (13:03)
== END 2019-05-26 09:43 | disposition home or self-care (01) ==
LOC: M OPP 07:38
PROVIDERS: ATTEND Internal Medicine Gastroenterology
DX: Z12.11 Encounter for screening for malignant neoplasm of colon (principal); D12.0 Benign neoplasm of cecum; K63.89 Other specified diseases of intestine; K57.30 Diverticulosis of large intestine without perforation or abscess without bleeding; K64.8 Other hemorrhoids; Z85.850 Personal history of malignant neoplasm of thyroid; R00.8 Other abnormalities of heart beat; E03.9 Hypothyroidism, unspecified; K21.9 Gastro-esophageal reflux disease without esophagitis; R12 Heartburn; M19.90 Unspecified osteoarthritis, unspecified site; G43.909 Migraine, unspecified, not intractable, without status migrainosus; J45.909 Unspecified asthma, uncomplicated; G47.30 Sleep apnea, unspecified; Z88.2 Allergy status to sulfonamides; Z88.8 Allergy status to other drugs, medicaments and biological substances; Z79.82 Long term (current) use of aspirin; Z79.899 Other long term (current) drug therapy

== ENCOUNTER 2019-05-27 11:19 | Emergency (ER) | payer MEDICARE, OTHER ==
[~2019-05-27] VITALS: Ht 167.6 cm; Wt 104.5 kg
[~2019-05-27 11:19] MED LIST changes: -NS 1,000 ML IV ONE
[2019-05-27] MEDS ORDERED: MELO15TA28 PO (11:48)
[2019-05-27 12:43] LABS: BASO % 0.5 % (0.0-1.0); EOS # 0.2 10^3/uL (0.0-0.50); EOS % 3.6 % (0.0-3.0); HEMATOCRIT 39.9 % (36.0-47.0); HEMOGLOBIN 12.9 g/dl (12.0-15.5); LYMPH # 2.2 10^3/uL (1.5-4.5); LYMPH % 39.6 % (24.0-44.0); MEAN CORPUSCULAR HEMOGLOBIN 28.2 pg (27.0-33.0); MEAN CORPUSCULAR HGB CONC 32.3 g/dl (32.0-36.5); MEAN CORPUSCULAR VOLUME 87.3 fl (80.0-96.0); MONO # 0.9 10^3/uL (0.0-0.8); MONO % 15.9 % (0.0-5.0); NEUTROPHILS # 2.3 10^3/uL (1.8-7.7); NEUTROPHILS % 40.2 % (36.0-66.0); PLATELET COUNT, AUTOMATED 215 10^3/uL (150-450); RED BLOOD COUNT 4.57 10^6/uL (4.00-5.40); WHITE BLOOD COUNT 5.6 10^3/uL (4.0-10.0)
[2019-05-27] MEDS ORDERED: TRAV04OPD OU (13:03)
[2019-05-27 13:11] LABS: BLOOD UREA NITROGEN 16 MG/DL (7-18); CALCIUM LEVEL 9.3 MG/DL (8.8-10.2); CARBON DIOXIDE LEVEL 27 MEQ/L (21-32); CHLORIDE LEVEL 111 MEQ/L (98-107); CK-MB VALUE MASS 1.4 NG/ML (<3.6); CPK CREATINE PHOSPHOKINASE 91 U/L (26-192); CREATININE FOR GFR 0.81 MG/DL (0.55-1.30); GLOMERULAR FILTRATION RATE > 60.0 (>39); GLUCOSE, FASTING 108 MG/DL (70-100); MB/CK RELATIVE INDEX 1.54 (< OR =4); POTASSIUM SERUM 4.2 MEQ/L (3.5-5.1); SODIUM LEVEL 144 MEQ/L (136-145)
[2019-05-27] MEDS ORDERED: diazePAM 5 MG TAB PO ONE (13:15)
[2019-05-27] MEDS ORDERED: NS 500 ML IV ONE (13:15)
[2019-05-27] MEDS ORDERED: ISOVUE-370 76% 100ML VIAL (Q9967) As Ordered ONE (13:30)
--- NOTE | 2019-05-27 13:35 | REP ---
Clinical: Chest pain and dizziness . Comparison: 07/03/2018 . Technique: PA and lateral. Findings: The mediastinum and cardiac silhouette are normal. The lung mancini are clear and without acute consolidation, effusion, or pneumothorax. The skeletal structures are intact and normal. Impression: 1. No acute cardiopulmonary process. Electronically Signed by Waldo Baldwin MD 05/27/2019 01:27 P
--- NOTE | 2019-05-27 14:17 | REP ---
Clinical: Vertigo. Comparison: 10/18/2013. Findings: Age-related atrophy and microvascular ischemic changes are appreciated. The ventricles and sulci are symmetric. Pedersen-white differentiation is maintained. There is no evidence for acute intracranial hemorrhage, mass/mass effect, pathology or infarction. No extra-axial fluid collection. Calvarium is intact. This is a moderate to significant mucoperiosteal changes involving the visualized sinuses along with evidence for prior bilateral maxillary antrostomy. Mastoid air cells are clear. Impression: Age related atrophy and microvascular ischemic changes. No acute intracranial hemorrhage, infarction, or mass/mass effect. Chronic sinusitis and evidence for prior bilateral maxillary antrostomy. Electronically Signed by Waldo Baldwin MD 05/27/2019 02:09 P
--- NOTE | 2019-05-27 14:55 | REP ---
CT ANGIOGRAPHY OF THE NECK WITH IV CONTRAST: HISTORY: Waves of vertigo. "Brain does not feel right." Comparison head CT study is from earlier this date. CT CONTRAST DOSE: 100 mL of intravenous Isovue 370. CT ANGIOGRAPHIC FINDINGS: The thoracic aortic arch is remarkable only for some minimal atherosclerotic calcification. A bovine arch configuration is seen, which is common normal variant of no clinical significance. Great vessel origins are otherwise unremarkable. The common carotid arteries are widely patent and symmetric. There is atherosclerotic plaquing at the bifurcations bilaterally. On the left there is a high-grade focal stenosis in the proximal ICA due to mixed calcific and non-calcific plateau. This measures 85% stenosis. The external carotid artery is unremarkable on the left. On the right, there is minimal calcific plaquing. No significant ICA stenosis. The right internal carotid artery is tortuous coursing near the midline in the retropharyngeal soft tissues as it ascends in the neck. There is vascular calcification bilaterally in the carotid siphons but no other ICA stenosis is seen. The vertebral arteries are patent bilaterally and codominant. Normal IMPRESSION: Focal significant left ICA stenosis due to mixed plaquing, approximately 85%. Otherwise negative CT angiography of the carotids. Electronically Signed by Derrell Rodriguez MD 05/27/2019 03:39 P
--- NOTE | 2019-05-27 14:58 | REP ---
CT ANGIOGRAPHY OF THE BRAIN WITH IV CONTRAST: HISTORY: Waves a vertigo, "brain does not feel right." CT CONTRAST DOSE: 100 mL of intravenous Isovue [address] ANGIOGRAPHIC FINDINGS: The patient is status post nasoantral window procedure bilaterally. There is chronic mucosal thickening in the left maxillary sinus and in the left frontal sinuses. No intraorbital abnormality is seen. The distal vertebral arteries are patent and of equal size. Basilar artery is somewhat tortuous but appears widely patent without evidence of stenosis. The right posterior cerebral artery takes a persistent origin from the anterior circulation which is a common normal variant. The left posterior cerebral artery is unremarkable. Superior cerebellar arteries are normal and symmetric. The anterior and middle cerebral arteries are intact. There is no visible espinal aneurysm or evidence of arteriovenous malformation. There is fairly prominent dural calcification along the falx. Some vascular calcification is seen in the carotid siphons bilaterally, mild in degree. The sagittal sinus, straight sinus, and sigmoid sinuses appear patent and unremarkable. The right sigmoid sinus is smaller than the left. IMPRESSION: There is no significant intracranial arterial or venous abnormality. Electronically Signed by Derrell Rodriguez MD 05/27/2019 03:39 P
[2019-05-27] MEDS ORDERED: hydrALAZINE INJ 20 MG/ML VIAL IV ONE (15:15)
[2019-05-27 15:56] VITALS: BP 215/98
[2019-05-27] MEDS ORDERED: ACETAMINOPHEN TAB 650MG DOSE (2X325MG) PO PRN (16:45)
[2019-05-27 16:58] VITALS: BP 160/90
[2019-05-28] MEDS ORDERED: ENOXAPARIN 40 MG/0.4 ML SYRINGE (J1650) SC SCH (09:00)
--- NOTE | 2019-05-28 19:29 | ECGEPIP ---
[facility] - ED Test Date: 2019-05-27 Pat Name: JAMES ALFORD Department: Room: - Gender: Female [employer] Hand: : 1945 Requested By: Mary Jo Grayson Order Number: [id number] Reading MD: Mary Jo Grayson Measurements Intervals [place] Rate: 52 P: 62 [place]: 134 QRS: 46 QRSD: 88 T: 63 QT: 488 QTc: 457 Interpretive Statements SINUS BRADYCARDIA WITH SINUS ARRHYTHMIA SIMILAR 07/05/18 Electronically Signed on 05-28-2019 19:29:14 EDT by Mary Jo Grayson
== END 2019-05-27 18:50 | disposition short-term general hospital (02) ==
LOC: M ED 11:19 → UNDOADMOB 11:20 → M ED INP 11:20 → M ED 18:50
DX: I16.0 Hypertensive urgency (principal); R00.1 Bradycardia, unspecified; R11.0 Nausea; Z98.890 Other specified postprocedural states; E78.5 Hyperlipidemia, unspecified; E05.90 Thyrotoxicosis, unspecified without thyrotoxic crisis or storm; Z85.850 Personal history of malignant neoplasm of thyroid; Z88.2 Allergy status to sulfonamides; Z88.8 Allergy status to other drugs, medicaments and biological substances; Z88.1 Allergy status to other antibiotic agents; Z79.899 Other long term (current) drug therapy; Z79.82 Long term (current) use of aspirin
CPT/HCPCS: 70450; 70496; 70498; 71046; 80048; 81001; 82550; 82553; 85025; 93005; 96361; 96374; 99285; Q9967

== ENCOUNTER → 2019-06-16 | Outpatient (REF) | payer MEDICARE, OTHER ==
[~2019-06-16] MED LIST changes: +MELO15TA28 PO; +TRAV04OPD OU
[2019-06-16 13:54] LABS: HEMOGLOBIN 13.6 g/dl (12.0-15.5); MEAN CORPUSCULAR HEMOGLOBIN 28.5 pg (27.0-33.0); MEAN CORPUSCULAR HGB CONC 32.4 g/dl (32.0-36.5); MEAN CORPUSCULAR VOLUME 87.9 fl (80.0-96.0); PLATELET COUNT, AUTOMATED 204 10^3/uL (150-450); RED BLOOD COUNT 4.78 10^6/uL (4.00-5.40)
[2019-06-16 14:07] LABS: ALBUMIN 3.7 GM/DL (3.2-5.2); ALT/SGPT 27 U/L (12-78); BILIRUBIN,TOTAL 0.5 MG/DL (0.2-1.0); BLOOD UREA NITROGEN 23 MG/DL (7-18); CALCIUM LEVEL 9.7 MG/DL (8.8-10.2); CARBON DIOXIDE LEVEL 28 MEQ/L (21-32); CHLORIDE LEVEL 111 MEQ/L (98-107); CHOLESTEROL LEVEL 185 MG/DL (<200); CHOLESTEROL RISK RATIO 4.404 (<5); CREATININE FOR GFR 0.91 MG/DL (0.55-1.30); GLOMERULAR FILTRATION RATE > 60.0 (>39); GLUCOSE, FASTING 120 MG/DL (70-100); HDL CHOLESTEROL 42 MG/DL (>40); LDL CHOLESTEROL 116 MG/DL (<100); MAGNESIUM LEVEL 2.2 MG/DL (1.8-2.4); NON-HDL-C 143 MG/DL; POTASSIUM SERUM 4.2 MEQ/L (3.5-5.1); SODIUM LEVEL 144 MEQ/L (136-145); THYROID STIMULATING HORMONE 0.037 uIU/ML (0.358-3.740); TOTAL PROTEIN 7.4 GM/DL (6.4-8.2); TRIGLYCERIDES LEVEL 134 MG/DL (<150)
== END ==
LOC: M SFHCPLAZ 11:07
PROVIDERS: ATTEND Internal Medicine
DX: G47.33 Obstructive sleep apnea (adult) (pediatric) (principal); E11.9 Type 2 diabetes mellitus without complications; E78.00 Pure hypercholesterolemia, unspecified; K21.9 Gastro-esophageal reflux disease without esophagitis; E03.9 Hypothyroidism, unspecified

== ENCOUNTER → 2019-06-25 | Outpatient (CLI) | payer MEDICARE, OTHER ==
--- NOTE | 2019-07-03 12:56 | SLEEPHOME ---
DATE OF STUDY: 06/25/2019 ORDERED BY: Dr. Payan Diagnostic home sleep testing was performed due to concern for the obstructive sleep apnea syndrome. For testing a nocturnal T3 respiratory monitoring device was used. Continuous record was made of pulse, oxygen saturation, airflow, chest and abdominal strain and body position. 9 hours and 59 minutes of data were reviewed. There were 5 hours and 25 minutes marked as time in bed. During the interval marked time in bed, there were 104 respiratory events identified of 10 seconds in duration or greater for an respiratory event index of 19.1. The events were primarily obstructive. Baseline pulse rate 56. Pulse rate ranged 47-80. Baseline saturation was 91%. Saturations fell as low as 79%, and testing was performed in both the supine and nonsupine positions. IMPRESSION: Abnormal home sleep testing with repetitive respiratory events and oxygen desaturations to 79% with a respiratory event index of 19.1 is consistent with the obstructive sleep apnea syndrome. RECOMMENDATIONS: The patient should be encouraged to undergo formal sleep evaluation.
== END ==
LOC: M SLEEP HO 10:41
PROVIDERS: ATTEND Internal Medicine
DX: G47.30 Sleep apnea, unspecified (principal)

== ENCOUNTER → 2020-01-13 | Outpatient (REF) | payer MEDICARE, OTHER ==
[2020-01-13 18:41] LABS: ALBUMIN 3.8 GM/DL (3.2-5.2); BILIRUBIN,TOTAL 0.4 MG/DL (0.2-1.0); CALCIUM LEVEL 9.9 MG/DL (8.8-10.2); CHOLESTEROL RISK RATIO 5.711 (<5); CREATININE FOR GFR 1.2 MG/DL (0.55-1.30); GLOMERULAR FILTRATION RATE 46.5 (>39); MAGNESIUM LEVEL 2.4 MG/DL (1.8-2.4); POTASSIUM SERUM 4.4 MEQ/L (3.5-5.1); THYROID STIMULATING HORMONE 0.74 uIU/ML (0.358-3.740); TOTAL PROTEIN 7.8 GM/DL (6.4-8.2)
[2020-01-13 19:01] LABS: MALB URINE SIEMENS 11.1 MG/L; MAU/CREAT RATIO 8.2 MCG/MG (0.0-30.0)
[2020-01-13 19:19] LABS: HEMOGLOBIN A1c 7.3 %
== END ==
LOC: M SFHCPLAZ 14:45
PROVIDERS: ATTEND Internal Medicine
DX: I10 Essential (primary) hypertension (principal); E11.9 Type 2 diabetes mellitus without complications; E78.00 Pure hypercholesterolemia, unspecified; E03.9 Hypothyroidism, unspecified; Z23 Encounter for immunization
CPT/HCPCS: 36415; 80053; 80061; 82043; 83036; 83735; 84443; 90732; G0009; G0463

== ENCOUNTER → 2020-07-06 | Outpatient (CLI) | payer MEDICARE, OTHER ==
[~2020-07-06] MED LIST changes: +PANT40TA29 PO; -PANT40TA3 PO
[2020-07-06 18:38] LABS: APPEARANCE, URINE HAZY (CLEAR); BACTERIA, URINE AUTO NEGATIVE (NEGATIVE); BILIRUBIN, URINE AUTO NEGATIVE (NEGATIVE); BLOOD, URINE BLOOD NEGATIVE (NEGATIVE); COLOR, URINE YELLOW (YELLOW); GLUCOSE, URINE (UA) AUTO NEGATIVE (NEGATIVE); KETONE, URINE AUTO NEGATIVE (NEGATIVE); LEUKOCYTE ESTERASE, URINE AUTO 1+ (NEGATIVE); NITRITE, URINE AUTO NEGATIVE (NEGATIVE); PROTEIN, URINE AUTO NEGATIVE (NEGATIVE); RBC, URINE AUTO 0 /HPF (0-3); SPECIFIC GRAVITY URINE AUTO 1.017 (1.002-1.035); SQUAMOUS EPITHELIAL CELL UR AU 4 /HPF (0-6); UROBILINOGEN, URINE AUTO 0.2 mg/dL (0.0-2.0); WBC, URINE AUTO 2 /HPF (0-3)
== END ==
LOC: M WUC 15:17
PROVIDERS: ATTEND Internal Medicine
DX: R30.0 Dysuria (principal)

== ENCOUNTER → 2020-10-06 | Outpatient (REF) | payer MEDICARE, OTHER ==
[2020-10-06 14:11] LABS: HEMATOCRIT 41.4 % (36.0-47.0); MEAN CORPUSCULAR HEMOGLOBIN 28.1 pg (27.0-33.0); MEAN CORPUSCULAR HGB CONC 31.4 g/dl (32.0-36.5); MEAN CORPUSCULAR VOLUME 89.6 fl (80.0-96.0); PLATELET COUNT, AUTOMATED 192 10^3/uL (150-450); RED BLOOD COUNT 4.62 10^6/uL (4.00-5.40); WHITE BLOOD COUNT 6.4 10^3/uL (4.0-10.0)
[2020-10-06 14:15] LABS: APPEARANCE, URINE CLOUDY (CLEAR); BACTERIA, URINE AUTO 1+ (NEGATIVE); BILIRUBIN, URINE AUTO NEGATIVE (NEGATIVE); BLOOD, URINE BLOOD 3+ (NEGATIVE); COLOR, URINE YELLOW (YELLOW); GLUCOSE, URINE (UA) AUTO NEGATIVE (NEGATIVE); KETONE, URINE AUTO NEGATIVE (NEGATIVE); LEUKOCYTE ESTERASE, URINE AUTO 2+ (NEGATIVE); MUCUS, URINE SMALL (NEGATIVE); NITRITE, URINE AUTO NEGATIVE (NEGATIVE); PROTEIN, URINE AUTO 1+ mg/dL (NEGATIVE); RBC, URINE AUTO 68 /HPF (0-3); SPECIFIC GRAVITY URINE AUTO 1.011 (1.002-1.035); SQUAMOUS EPITHELIAL CELL UR AU 1 /HPF (0-6); UROBILINOGEN, URINE AUTO 0.2 mg/dL (0.0-2.0); WBC, URINE AUTO 12 /HPF (0-3)
[2020-10-06 14:37] LABS: ALBUMIN 3.8 GM/DL (3.2-5.2); BILIRUBIN,TOTAL 0.4 MG/DL (0.2-1.0); CHOLESTEROL RISK RATIO 5.139 (<5); CREATININE FOR GFR 1.31 MG/DL (0.55-1.30); GLOMERULAR FILTRATION RATE 41.9 (>39); HEMOGLOBIN A1c 6.4 %; MAGNESIUM LEVEL 2.3 MG/DL (1.8-2.4); POTASSIUM SERUM 4.6 MEQ/L (3.5-5.1); TOTAL PROTEIN 7.3 GM/DL (6.4-8.2)
[2020-10-06 14:44] LABS: CREATININE, URINE 79.4 MG/DL; MAU/CREAT RATIO 144.8 MCG/MG (0.0-30.0)
== END ==
LOC: M SFHCPLAZ 09:33
PROVIDERS: ATTEND Internal Medicine
DX: Z01.818 Encounter for other preprocedural examination (principal); N20.0 Calculus of kidney; J45.30 Mild persistent asthma, uncomplicated; I10 Essential (primary) hypertension; E11.9 Type 2 diabetes mellitus without complications; E78.00 Pure hypercholesterolemia, unspecified; Z20.828 Contact with and (suspected) exposure to other viral communicable diseases; Z23 Encounter for immunization
CPT/HCPCS: 36415; 80053; 80061; 81001; 82043; 83036; 83735; 85027; 86769; 87086; 90682; G0008; G0463

== ENCOUNTER → 2021-04-11 | Outpatient (CLI) | payer MEDICARE, OTHER ==
[2021-04-11 13:18] LABS: ALBUMIN 3.6 GM/DL (3.2-5.2); BILIRUBIN,TOTAL 0.3 MG/DL (0.2-1.0); CALCIUM LEVEL 9.8 MG/DL (8.8-10.2); CHOLESTEROL RISK RATIO 4.619 (<5); CREATININE FOR GFR 1.26 MG/DL (0.55-1.30); GLOMERULAR FILTRATION RATE 43.8 (>39); MAGNESIUM LEVEL 2.2 MG/DL (1.8-2.4); POTASSIUM SERUM 4.3 MEQ/L (3.5-5.1); THYROID STIMULATING HORMONE 2.55 uIU/ML (0.358-3.740); TOTAL PROTEIN 7.1 GM/DL (6.4-8.2)
[2021-04-11 13:20] LABS: CREATININE, URINE 98.9 MG/DL; MALB URINE SIEMENS < 5.0 MG/L
== END ==
LOC: M WUC 10:40
PROVIDERS: ATTEND Internal Medicine
DX: E11.9 Type 2 diabetes mellitus without complications (principal); E78.00 Pure hypercholesterolemia, unspecified; I10 Essential (primary) hypertension; E03.9 Hypothyroidism, unspecified

== ENCOUNTER → 2021-04-12 | Outpatient (REF) | payer MEDICARE, OTHER ==
[2021-04-12 19:05] LABS: HEMOGLOBIN A1c 6.1 %
== END ==
LOC: M SFHCPLAZ 12:32
PROVIDERS: ATTEND Internal Medicine
DX: E11.9 Type 2 diabetes mellitus without complications (principal); Z11.59 Encounter for screening for other viral diseases
CPT/HCPCS: 36415; 83036; G0463; G0472

== ENCOUNTER → 2021-04-25 | Outpatient (REF) | payer MEDICARE, OTHER | LOC: M SFHCPLAZ 10:02 | PROVIDERS: ATTEND Physician Assistant | DX: L02.91 Cutaneous abscess, unspecified (principal) ==

== ENCOUNTER → 2021-05-17 | Outpatient (CLI) | payer MEDICARE, OTHER ==
--- NOTE | 2021-05-17 12:08 | REPMRS ---
Patient History The patient states she has not had a clinical breast exam in over a year. Patient has history of other cancer at age 36. Family history of prostate cancer at age 88 in father. Patient states no breast complaints today. Patient has signed MRS History Sheet. Digital Woman Screen Mammo: May 17, 2021 - Exam #: [id number] Bilateral CC and MLO view(s) were taken. Technologist: Irene Desai, Technologist Prior study comparison: January 20, 2019, bilateral digital mammo screening bilat, performed at [facility]. September 05, 2017, bilateral digital mammo screening bilat, performed at [facility]. September 01, 2016, bilateral digital mammo screening bilat, performed at [facility]. FINDINGS: The breast tissue is almost entirely fat. The Volpara volumetric breast density category is: A. There has been no change in the appearance of the mammogram from the prior studies. There is no interval development of dominant mass, architectural distortion, or grouped microcalcification typical of malignancy. 3-D tomosynthesis shows no additional findings. Assessment: BI-RADS/ACR category 1 mammogram. Negative Mammogram. Recommendation Routine screening mammogram of both breasts in 1 year (for women over age 40). This patient's [facility] Lifetime Breast Cancer RIsk is estimated at 2.2 %. This mammogram was interpreted with the aid of an FDA-approved computer-aided dectection system. Electronically Signed By: Fidel Rodriguez MD 05/17/21 [id number]
== END ==
LOC: M WHC 11:14
PROVIDERS: ATTEND Internal Medicine
DX: Z12.31 Encounter for screening mammogram for malignant neoplasm of breast (principal); Z80.42 Family history of malignant neoplasm of prostate

== ENCOUNTER → 2021-10-03 | Outpatient (CLI) | payer MEDICARE, OTHER ==
[2021-10-03 11:19] LABS: BASO # 0.1 10^3/uL (0.0-0.2); BASO % 0.9 % (0.0-1.0); EOS # 0.3 10^3/uL (0.0-0.5); HEMATOCRIT 41.4 % (36.0-47.0); HEMOGLOBIN 13.2 g/dl (12.0-15.5); LYMPH # 2.7 10^3/uL (1.5-5.0); LYMPH % 38.3 % (24.0-44.0); MEAN CORPUSCULAR HEMOGLOBIN 28.8 pg (27.0-33.0); MEAN CORPUSCULAR HGB CONC 31.9 g/dl (32.0-36.5); MEAN CORPUSCULAR VOLUME 90.4 fl (80.0-96.0); MONO # 1.2 10^3/uL (0.0-0.8); NEUTROPHILS # 2.8 10^3/uL (1.5-8.5); NEUTROPHILS % 39.4 % (36.0-66.0); PLATELET COUNT, AUTOMATED 225 10^3/uL (150-450); RED BLOOD COUNT 4.58 10^6/uL (4.00-5.40)
[2021-10-03 13:16] LABS: ALBUMIN 3.5 GM/DL (3.2-5.2); BILIRUBIN,TOTAL 0.3 MG/DL (0.2-1.0); CALCIUM LEVEL 9.9 MG/DL (8.8-10.2); CHOLESTEROL RISK RATIO 5.217 (<5); CREATININE FOR GFR 1.21 MG/DL (0.55-1.30); GLOMERULAR FILTRATION RATE 45.8 (>39); MAGNESIUM LEVEL 2.3 MG/DL (1.8-2.4); POTASSIUM SERUM 4.3 MEQ/L (3.5-5.1); TOTAL PROTEIN 7.1 GM/DL (6.4-8.2); URIC ACID 7.7 MG/DL (2.6-6.0)
[2021-10-03 14:15] LABS: HEMOGLOBIN A1c 6.3 %
== END ==
LOC: M WUC 09:21
PROVIDERS: ATTEND Internal Medicine
DX: E11.9 Type 2 diabetes mellitus without complications (principal); E78.00 Pure hypercholesterolemia, unspecified; K21.9 Gastro-esophageal reflux disease without esophagitis; N20.0 Calculus of kidney

== ENCOUNTER → 2021-11-29 | Outpatient (CLI) | payer MEDICARE, OTHER | LOC: M RAD 12:55 | PROVIDERS: ATTEND Nurse Practitioner Adult Health | DX: J45.901 Unspecified asthma with (acute) exacerbation (principal) ==

== ENCOUNTER 2022-02-15 12:51 | Emergency (ER) | payer MEDICARE, OTHER ==
[~2022-02-15] VITALS: Ht 167.6 cm; Wt 104.5 kg
[2022-02-15 12:51] VITALS: BP 137/65
[2022-02-15] MEDS ORDERED: ONDANSETRON 4MG ORAL DISINTEGRATING TAB PO ONE (14:00)
[2022-02-15] MEDS ORDERED: ACETAMINOPHEN 500 MG TAB PO ONE (14:05)
== END 2022-02-15 14:44 | disposition home or self-care (01) ==
LOC: M ED 12:51
DX: S09.90XA Unspecified injury of head, initial encounter (principal); S13.9XXA Sprain of joints and ligaments of unspecified parts of neck, initial encounter; V49.9XXA Car occupant (driver) (passenger) injured in unspecified traffic accident, initial encounter; Y92.9 Unspecified place or not applicable; Y93.9 Activity, unspecified; Y99.9 Unspecified external cause status; I10 Essential (primary) hypertension; J45.909 Unspecified asthma, uncomplicated; Z79.82 Long term (current) use of aspirin; Z79.899 Other long term (current) drug therapy; Z88.8 Allergy status to other drugs, medicaments and biological substances; Z88.2 Allergy status to sulfonamides

== ENCOUNTER → 2022-03-16 | Outpatient (REF) | payer MEDICARE, OTHER | LOC: M SFHCPLAZ 16:39 | PROVIDERS: ATTEND Physician Assistant | DX: R39.15 Urgency of urination (principal) ==

== ENCOUNTER → 2022-04-10 | Outpatient (CLI) | payer MEDICARE, OTHER ==
[2022-04-10 14:47] LABS: MALB URINE SIEMENS 10.2 MG/L; MAU/CREAT RATIO 7.6 MCG/MG (0.0-30.0)
[2022-04-10 14:54] LABS: ALBUMIN 3.6 GM/DL (3.2-5.2); BILIRUBIN,TOTAL 0.4 MG/DL (0.2-1.0); CALCIUM LEVEL 9.5 MG/DL (8.8-10.2); CHOLESTEROL RISK RATIO 5.097 (<5); CREATININE FOR GFR 1.16 MG/DL (0.55-1.30); GLOMERULAR FILTRATION RATE 48.1 (>39); MAGNESIUM LEVEL 2.3 MG/DL (1.8-2.4); POTASSIUM SERUM 4.9 MEQ/L (3.5-5.1); THYROID STIMULATING HORMONE 5.34 uIU/ML (0.358-3.740); TOTAL PROTEIN 7.1 GM/DL (6.4-8.2); URIC ACID 8.8 MG/DL (2.6-6.0)
[2022-04-10 14:59] LABS: TOTAL 25(OH) VITAMIN D 88.5 NG/ML (30.0-100.0)
[2022-04-10 15:00] LABS: HEMOGLOBIN A1c 6.2 %
== END ==
LOC: M PLALAB 10:43
PROVIDERS: ATTEND Internal Medicine
DX: E78.00 Pure hypercholesterolemia, unspecified (principal); E11.9 Type 2 diabetes mellitus without complications; I10 Essential (primary) hypertension; E03.9 Hypothyroidism, unspecified; E55.9 Vitamin D deficiency, unspecified; N20.0 Calculus of kidney

== ENCOUNTER → 2022-05-30 | Outpatient (REF) | payer MEDICARE, OTHER | LOC: M SFHCPLAZ 16:47 | PROVIDERS: ATTEND Physician Assistant | DX: R68.83 Chills (without fever) (principal); R35.0 Frequency of micturition ==

== ENCOUNTER → 2022-06-06 | Outpatient (CLI) | payer MEDICARE, OTHER ==
[2022-06-06 15:08] LABS: BASO % 0.5 % (0.0-1.0); EOS # 0.2 10^3/uL (0.0-0.5); EOS % 3.5 % (0.0-3.0); HEMOGLOBIN 12.1 g/dl (12.0-15.5); LYMPH # 1.1 10^3/uL (1.5-5.0); LYMPH % 18.1 % (24.0-44.0); MEAN CORPUSCULAR HEMOGLOBIN 28.6 pg (27.0-33.0); MEAN CORPUSCULAR HGB CONC 31.8 g/dl (32.0-36.5); MEAN CORPUSCULAR VOLUME 89.8 fl (80.0-96.0); MONO # 1.2 10^3/uL (0.0-0.8); MONO % 20.4 % (2.0-8.0); NEUTROPHILS # 3.5 10^3/uL (1.5-8.5); NEUTROPHILS % 57.2 % (36.0-66.0); PLATELET COUNT, AUTOMATED 222 10^3/uL (150-450); RED BLOOD COUNT 4.23 10^6/uL (4.00-5.40); WHITE BLOOD COUNT 6.1 10^3/uL (4.0-10.0)
[2022-06-06 15:35] LABS: ERYTHROCYTE SEDIMENTATION RATE 58 mm/hr (0-30)
[2022-06-06 16:05] LABS: ALBUMIN 2.9 GM/DL (3.2-5.2); ALT/SGPT 26 U/L (12-78); BILIRUBIN,TOTAL 0.5 MG/DL (0.2-1.0); BLOOD UREA NITROGEN 21 MG/DL (7-18); C REACTIVE PROTEIN QUANTITATIV 4.47 MG/DL (0.00-0.30); CALCIUM LEVEL 9.4 MG/DL (8.8-10.2); CARBON DIOXIDE LEVEL 26 MEQ/L (21-32); CHLORIDE LEVEL 107 MEQ/L (98-107); CREATININE FOR GFR 1.43 MG/DL (0.55-1.30); FREE T4 1.11 NG/DL (0.76-1.46); GLOMERULAR FILTRATION RATE 37.8 (>39); GLUCOSE, FASTING 186 MG/DL (70-100); POTASSIUM SERUM 4.2 MEQ/L (3.5-5.1); SODIUM LEVEL 139 MEQ/L (136-145); THYROID STIMULATING HORMONE 0.831 uIU/ML (0.358-3.740); TOTAL PROTEIN 6.7 GM/DL (6.4-8.2)
[2022-06-06 17:41] LABS: MONO REFLEX EBV VCA IgM NEGATIVE (NEGATIVE)
[2022-06-06 19:46] LABS: HEMOGLOBIN A1c 6.8 %
== END ==
LOC: M WUC 13:42
PROVIDERS: ATTEND Physician Assistant
DX: R53.83 Other fatigue (principal); R51.9 Headache, unspecified; R35.0 Frequency of micturition; E11.9 Type 2 diabetes mellitus without complications

== ENCOUNTER → 2022-07-13 | Outpatient (CLI) | payer MEDICARE, OTHER ==
[2022-07-13 17:32] LABS: BASO # 0.1 10^3/uL (0.0-0.2); BASO % 1.1 % (0.0-1.0); EOS # 0.2 10^3/uL (0.0-0.5); EOS % 3.2 % (0.0-3.0); HEMATOCRIT 40.4 % (36.0-47.0); HEMOGLOBIN 12.4 g/dl (12.0-15.5); LYMPH # 1.9 10^3/uL (1.5-5.0); LYMPH % 31.3 % (24.0-44.0); MEAN CORPUSCULAR HEMOGLOBIN 28.1 pg (27.0-33.0); MEAN CORPUSCULAR HGB CONC 30.7 g/dl (32.0-36.5); MEAN CORPUSCULAR VOLUME 91.4 fl (80.0-96.0); MONO # 1.2 10^3/uL (0.0-0.8); MONO % 19.6 % (2.0-8.0); NEUTROPHILS # 2.7 10^3/uL (1.5-8.5); NEUTROPHILS % 44.3 % (36.0-66.0); PLATELET COUNT, AUTOMATED 253 10^3/uL (150-450); RED BLOOD COUNT 4.42 10^6/uL (4.00-5.40); WHITE BLOOD COUNT 6.2 10^3/uL (4.0-10.0)
[2022-07-13 18:10] LABS: ALBUMIN 3.4 GM/DL (3.2-5.2); ALT/SGPT 26 U/L (12-78); BILIRUBIN,TOTAL 0.2 MG/DL (0.2-1.0); BLOOD UREA NITROGEN 27 MG/DL (7-18); CALCIUM LEVEL 9.6 MG/DL (8.8-10.2); CARBON DIOXIDE LEVEL 26 MEQ/L (21-32); CHLORIDE LEVEL 109 MEQ/L (98-107); CREATININE FOR GFR 1.17 MG/DL (0.55-1.30); GLOMERULAR FILTRATION RATE 47.6 (>39); GLUCOSE, FASTING 123 MG/DL (70-100); IMMUNOGLOBULIN G 973 MG/DL (681-1648); IMMUNOGLOBULIN M 25.4 MG/DL (40-230); LDH LACTATE DEHYDROGENASE 178 U/L (84-246); POTASSIUM SERUM 4.1 MEQ/L (3.5-5.1); SODIUM LEVEL 140 MEQ/L (136-145); TOTAL PROTEIN 6.9 GM/DL (6.4-8.2); URIC ACID 7.5 MG/DL (2.6-6.0)
[2022-07-13 18:23] LABS: MAU/CREAT RATIO 8.9 MCG/MG (0.0-30.0)
[2022-07-14 11:57] LABS: ALBUMIN % 56.5 % (55.8-66.1); ALPHA-1-GLOBULINS 0.28 GM/DL (0.17-0.41); ALPHA-2-GLOBULINS 0.86 GM/DL (0.42-0.99); ALPHA-2-GLOBULINS % 12.4 % (7.1-11.8); BETA-1-GLOBULINS 0.46 GM/DL (0.28-0.60); BETA-1-GLOBULINS % 6.6 % (4.7-7.2); BETA-2-GLOBULINS % 7.2 % (3.2-6.5); GAMMA GLOBULIN % 13.3 % (11.1-18.8); GAMMA GLOBULINS 0.92 GM/DL (0.65-1.58)
[2022-07-15 18:07] LABS: FREE KAPPA LIGHT CHAINS SERUM 71.4 mg/L (3.3-19.4); FREE LAMBDA LIGHT CHAINS SERUM 19.4 mg/L (5.7-26.3); KAPPA/LAMBDA RATIO SERUM 3.68 (0.26-1.65)
== END ==
LOC: M WUC 11:09
PROVIDERS: ATTEND Internal Medicine Hematology
DX: Z86.19 Personal history of other infectious and parasitic diseases (principal); E55.9 Vitamin D deficiency, unspecified

== ENCOUNTER → 2022-08-16 | Outpatient (CLI) | payer MEDICARE, OTHER ==
[2022-08-16 17:44] LABS: BASO # 0.1 10^3/uL (0.0-0.2); BASO % 0.8 % (0.0-1.0); EOS # 0.2 10^3/uL (0.0-0.5); EOS % 2.2 % (0.0-3.0); HEMATOCRIT 38.8 % (36.0-47.0); HEMOGLOBIN 12.3 g/dl (12.0-15.5); LYMPH % 26.7 % (24.0-44.0); MEAN CORPUSCULAR HEMOGLOBIN 28.3 pg (27.0-33.0); MEAN CORPUSCULAR HGB CONC 31.7 g/dl (32.0-36.5); MEAN CORPUSCULAR VOLUME 89.2 fl (80.0-96.0); MONO # 1.1 10^3/uL (0.0-0.8); MONO % 15.4 % (2.0-8.0); NEUTROPHILS % 54.6 % (36.0-66.0); PLATELET COUNT, AUTOMATED 206 10^3/uL (150-450); RED BLOOD COUNT 4.35 10^6/uL (4.00-5.40); WHITE BLOOD COUNT 7.3 10^3/uL (4.0-10.0)
[2022-08-16 18:31] LABS: ALBUMIN 3.5 GM/DL (3.2-5.2); BILIRUBIN,TOTAL 0.3 MG/DL (0.2-1.0); CALCIUM LEVEL 9.9 MG/DL (8.8-10.2); CREATININE FOR GFR 1.1 MG/DL (0.55-1.30); GLOMERULAR FILTRATION RATE 51.1 (>39); POTASSIUM SERUM 4.2 MEQ/L (3.5-5.1); TOTAL PROTEIN 7.1 GM/DL (6.4-8.2); URIC ACID 7.1 MG/DL (2.6-6.0)
== END ==
LOC: M WUC 14:49
PROVIDERS: ATTEND Internal Medicine Hematology
DX: R60.9 Edema, unspecified (principal); Z86.19 Personal history of other infectious and parasitic diseases

== ENCOUNTER → 2023-03-15 | Outpatient (REF) | payer MEDICARE, OTHER ==
[~2023-03-15] MED LIST changes: +CO Q50CA7 PO; -COQ-50CA2 PO; +TIMO0.5S20 OU; -TIMO0.5S29 OU
== END ==
LOC: M SFHCPLAZ 13:14
PROVIDERS: ATTEND Physician Assistant
DX: J02.9 Acute pharyngitis, unspecified (principal)

== ENCOUNTER → 2023-04-12 | Outpatient (CLI) | payer MEDICARE, OTHER ==
[2023-04-12 16:25] LABS: HEMATOCRIT 40.3 % (36.0-47.0); HEMOGLOBIN 12.9 g/dl (12.0-15.5); MEAN CORPUSCULAR HEMOGLOBIN 29.1 pg (27.0-33.0); PLATELET COUNT, AUTOMATED 220 10^3/uL (150-450); RED BLOOD COUNT 4.43 10^6/uL (4.00-5.40); WHITE BLOOD COUNT 6.1 10^3/uL (4.0-10.0)
[2023-04-12 16:28] LABS: C REACTIVE PROTEIN QUANTITATIV < 0.40 MG/DL (<1.0)
[2023-04-12 16:30] LABS: ALBUMIN 3.6 G/DL (3.2-5.2); ALKALINE PHOSPHATASE 88 U/L (46-116); ALT/SGPT 18 U/L (7.0-40); AST/SGOT 15 U/L (<34); BILIRUBIN,TOTAL 0.6 MG/DL (0.3-1.2); BLOOD UREA NITROGEN 32 MG/DL (9-23); CALCIUM LEVEL 9.5 MG/DL (8.3-10.6); CARBON DIOXIDE LEVEL 28 MMOL/L (20-31); CHLORIDE LEVEL 106 MMOL/L (98-107); CHOLESTEROL LEVEL 209 MG/DL (<200); CHOLESTEROL RISK RATIO 4.57 (<5); CREATININE FOR GFR 1.23 MG/DL (0.55-1.30); GLOMERULAR FILTRATION RATE 44.8 (>39); GLUCOSE, FASTING 128 MG/DL (74-106); HDL CHOLESTEROL 45.7 MG/DL (>40); LDL CHOLESTEROL 134.5 MG/DL (<100); NON-HDL-C 163.3 MG/DL; POTASSIUM SERUM 4.9 MMOL/L (3.5-5.1); SODIUM LEVEL 141 MMOL/L (136-145); TOTAL PROTEIN 6.5 G/DL (5.7-8.2); TRIGLYCERIDES LEVEL 144 MG/DL (<150)
[2023-04-12 16:34] LABS: FREE T4 1.14 NG/DL (0.89-1.76)
[2023-04-12 16:35] LABS: TOTAL 25(OH) VITAMIN D 92.3 NG/ML (20.0-100.0); VITAMIN B12 LEVEL 1049 PG/ML (211-911)
[2023-04-12 16:46] LABS: CREATININE, URINE 63.2 MG/DL; MALB URINE SIEMENS < 3.0 MG/L; MAU/CREAT RATIO 4.7 MCG/MG (0.0-30.0)
[2023-04-12 18:49] LABS: HEMOGLOBIN A1c 6.4 % (4.0-6.0)
== END ==
LOC: M WUC 11:54
PROVIDERS: ATTEND Internal Medicine Hematology
DX: E11.9 Type 2 diabetes mellitus without complications (principal); Z79.899 Other long term (current) drug therapy

== ENCOUNTER → 2023-06-19 | Outpatient (REF) | payer MEDICARE, OTHER ==
[2023-06-19 20:06] LABS: APPEARANCE, URINE CLEAR (CLEAR); BACTERIA, URINE AUTO NEGATIVE (NEGATIVE); BILIRUBIN, URINE AUTO NEGATIVE (NEGATIVE); BLOOD, URINE BLOOD NEGATIVE (NEGATIVE); COLOR, URINE STRAW (YELLOW); GLUCOSE, URINE (UA) AUTO NEGATIVE (NEGATIVE); KETONE, URINE AUTO NEGATIVE (NEGATIVE); LEUKOCYTE ESTERASE, URINE AUTO TRACE (NEGATIVE); MUCUS, URINE SMALL (NEGATIVE); NITRITE, URINE AUTO NEGATIVE (NEGATIVE); PROTEIN, URINE AUTO NEGATIVE (NEGATIVE); RBC, URINE AUTO 0 /HPF (0-3); SPECIFIC GRAVITY URINE AUTO 1.009 (1.002-1.035); SQUAMOUS EPITHELIAL CELL UR AU 0 /HPF (0-6); UROBILINOGEN, URINE AUTO 0.2 mg/dL (0.0-2.0); WBC, URINE AUTO 0 /HPF (0-3)
== END ==
LOC: M SFHCPLAZ 17:20
PROVIDERS: ATTEND Nurse Practitioner Family
DX: N39.0 Urinary tract infection, site not specified (principal)

== ENCOUNTER → 2023-09-13 | Outpatient (CLI) | payer MEDICARE, OTHER ==
[2023-09-13 09:35] LABS: INR 1.09; PROTHROMBIN TIME 13.8 SECONDS (12.5-14.5)
[2023-09-13 10:12] LABS: HEMATOCRIT 40.4 % (36.0-47.0); MEAN CORPUSCULAR HEMOGLOBIN 28.8 pg (27.0-33.0); MEAN CORPUSCULAR HGB CONC 32.2 g/dl (32.0-36.5); MEAN CORPUSCULAR VOLUME 89.4 fl (80.0-96.0); PLATELET COUNT, AUTOMATED 218 10^3/uL (150-450); RED BLOOD COUNT 4.52 10^6/uL (4.00-5.40); WHITE BLOOD COUNT 6.6 10^3/uL (4.0-10.0)
[2023-09-13 10:21] LABS: ERYTHROCYTE SEDIMENTATION RATE 27 mm/hr (0-30)
[2023-09-13 10:41] LABS: ALBUMIN 3.4 G/DL (3.2-5.2); BILIRUBIN,TOTAL 0.3 MG/DL (0.3-1.2); CALCIUM LEVEL 9.5 MG/DL (8.3-10.6); CREATININE FOR GFR 1.1 MG/DL (0.55-1.30); POTASSIUM SERUM 4.1 MMOL/L (3.5-5.1); TOTAL PROTEIN 6.7 G/DL (5.7-8.2)
== END ==
LOC: M RAD 08:15
PROVIDERS: ATTEND Orthopaedic Surgery
DX: Z01.818 Encounter for other preprocedural examination (principal); M17.11 Unilateral primary osteoarthritis, right knee; R00.0 Tachycardia, unspecified

== ENCOUNTER → 2023-11-28 | Outpatient (CLI) | payer MEDICARE, OTHER ==
[2023-11-28 18:04] LABS: HEMATOCRIT 42.8 % (36.0-47.0); HEMOGLOBIN 13.9 g/dl (12.0-15.5); MEAN CORPUSCULAR HEMOGLOBIN 28.9 pg (27.0-33.0); MEAN CORPUSCULAR HGB CONC 32.5 g/dl (32.0-36.5); PLATELET COUNT, AUTOMATED 192 10^3/uL (150-450); RED BLOOD COUNT 4.81 10^6/uL (4.00-5.40); WHITE BLOOD COUNT 8.4 10^3/uL (4.0-10.0)
[2023-11-28 18:30] LABS: C REACTIVE PROTEIN QUANTITATIV < 0.40 MG/DL (<1.0)
[2023-11-28 18:32] LABS: ALBUMIN 3.6 G/DL (3.2-5.2); ALKALINE PHOSPHATASE 95 U/L (46-116); ALT/SGPT 26 U/L (7.0-40); AST/SGOT 15 U/L (<34); BILIRUBIN,TOTAL 0.3 MG/DL (0.3-1.2); BLOOD UREA NITROGEN 29 MG/DL (9-23); CARBON DIOXIDE LEVEL 29 MMOL/L (20-31); CHLORIDE LEVEL 108 MMOL/L (98-107); CHOLESTEROL LEVEL 121 MG/DL (<200); CHOLESTEROL RISK RATIO 3.19 (<5); GLOMERULAR FILTRATION RATE 50.9 (>32); GLUCOSE, FASTING 125 MG/DL (74-106); HDL CHOLESTEROL 37.9 MG/DL (>40); LDL CHOLESTEROL 54.3 MG/DL (<100); NON-HDL-C 83.1 MG/DL; POTASSIUM SERUM 4.5 MMOL/L (3.5-5.1); SODIUM LEVEL 142 MMOL/L (136-145); TOTAL PROTEIN 7.1 G/DL (5.7-8.2); TRIGLYCERIDES LEVEL 144 MG/DL (<150)
[2023-11-28 18:36] LABS: FREE T4 1.77 NG/DL (0.89-1.76); THYROID STIMULATING HORMONE 0.054 uIU/ML (0.55-4.78)
[2023-11-28 18:38] LABS: TOTAL 25(OH) VITAMIN D 106.7 NG/ML (20.0-100.0); VITAMIN B12 LEVEL 750 PG/ML (211-911)
[2023-11-28 19:04] LABS: HEMOGLOBIN A1c 6.4 % (4.0-6.0)
[2023-11-30 12:08] LABS: IgG P18 AB Absent (.); IgG P23 AB Absent (.); IgG P28 AB Absent (.); IgG P30 AB Absent (.); IgG P39 AB Absent (.); IgG P41 AB Present (.); IgG P45 AB Absent (.); IgG P66 AB Absent (.); IgG P93 AB Absent (.); IgM P23 AB Absent (.); IgM P39 AB Absent (.); IgM P41 AB Absent (.); LYME IgG WB INTERPRETATION Negative (.); LYME IgM WB INTERPRETATION Negative (.)
== END ==
LOC: M PLALAB 14:59
PROVIDERS: ATTEND Internal Medicine Hematology
DX: E11.9 Type 2 diabetes mellitus without complications (principal); Z79.899 Other long term (current) drug therapy

== ENCOUNTER 2024-02-21 21:31 | Inpatient (IN) | payer MEDICARE, OTHER ==
[~2024-02-21] VITALS: Ht 167.6 cm; Wt 105.3 kg
[~2024-02-21 21:31] MED LIST changes: -ALBU2.5V10 INH; -ALBU8.5H INH; -ALLO10TA PO; -ALLO300T2 PO; -AMOX875T PO; -ATOR1TAB19 PO; -BENZ200C70 PO; -BUDE10.2 INH; -BUTA1CAP4 PO; -ERGO500029 PO; -FISH100015 PO; -FURO20TA2 PO; -IRBE300T25 PO; -LOTE0.5O OD; -NYST-13 TOP; -PRED10TA2 PO; -ROSU5TAB5 PO; -THERTAB19 PO; -TIOT18INH INH; -TRIA1CR80 TOP; -VITA200012 PO
[2024-02-21] MEDS: IPRATROPIUM 0.5MG/ALBUTEROL 2.5MG INH SOL UD 3ML (DUONEB) NEB ONE ×2 (22:18→22:25)
[2024-02-21 22:23] LABS: VENOUS HCO3 24.5 MMOL/L (23.0-27.0); VENOUS O2 SATURATION 80.6 % (60.0-80.0); VENOUS PARTIAL PRESSURE CO2 39.4 mmHg (38.0-50.0); VENOUS PARTIAL PRESSURE O2 42.5 mmHg (30.0-50.0); VENOUS PH 7.411 UNITS (7.330-7.430); VENOUS STANDARD HCO3 24.1 MMOL/L; VENOUS TOTAL CO2 25.7 MMOL/L (24.0-28.0)
[2024-02-21] MEDS: amLODIPine 5 MG TAB PO ONE (22:23)
[2024-02-21 22:24] LABS: BASO % 0.3 % (0.0-1.0); LYMPH # 0.7 10^3/uL (1.5-5.0); MEAN CORPUSCULAR HEMOGLOBIN 28.5 pg (27.0-33.0); MEAN CORPUSCULAR HGB CONC 33.3 g/dl (32.0-36.5); MEAN CORPUSCULAR VOLUME 85.5 fl (80.0-96.0); MONO % 7.9 % (2.0-8.0); NEUTROPHILS # 10.5 10^3/uL (1.5-8.5); NEUTROPHILS % 85.2 % (36.0-66.0); PLATELET COUNT, AUTOMATED 232 10^3/uL (150-450); RED BLOOD COUNT 4.91 10^6/uL (4.00-5.40); WHITE BLOOD COUNT 12.4 10^3/uL (4.0-10.0)
[2024-02-21] MEDS ORDERED: ALLO10TA PO (22:41)
[2024-02-21] MEDS ORDERED: BENZ200C70 PO (22:41)
[2024-02-21] MEDS ORDERED: TIOT18INH INH (22:41)
[2024-02-21] MEDS ORDERED: IRBE300T25 PO (22:41)
[2024-02-21] MEDS ORDERED: AMOX875T PO (22:41)
[2024-02-21] MEDS ORDERED: ALBU2.5V10 INH (22:41)
[2024-02-21] MEDS ORDERED: FURO20TA2 PO (22:41)
[2024-02-21] MEDS ORDERED: ATOR1TAB19 PO (22:41)
[2024-02-21] MEDS ORDERED: PRED10TA2 PO (22:41)
[2024-02-21 23:06] LABS: ALBUMIN 3.7 G/DL (3.2-5.2); ALKALINE PHOSPHATASE 132 U/L (46-116); ALT/SGPT 24 U/L (7.0-40); AST/SGOT 23 U/L (<34); BILIRUBIN,DIRECT 0.1 MG/DL (<0.4); BILIRUBIN,TOTAL 0.3 MG/DL (0.3-1.2); BLOOD UREA NITROGEN 32 MG/DL (9-23); CALCIUM LEVEL 10.2 MG/DL (8.3-10.6); CARBON DIOXIDE LEVEL 26 MMOL/L (20-31); CHLORIDE LEVEL 101 MMOL/L (98-107); CK-MB VALUE MASS < 1.0 NG/ML (<3.6); CREATININE FOR GFR 1.02 MG/DL (0.55-1.30); GLOMERULAR FILTRATION RATE 55.5 (>32); GLUCOSE, FASTING 180 MG/DL (74-106); POTASSIUM SERUM 5.4 MMOL/L (3.5-5.1); SODIUM LEVEL 135 MMOL/L (136-145); TOTAL PROTEIN 7.4 G/DL (5.7-8.2)
[2024-02-21 23:12] LABS: PROCALCITONIN 0.05 ng/ml
[2024-02-21 23:14] LABS: CPK CREATINE PHOSPHOKINASE 318 U/L (34-145); MB/CK RELATIVE INDEX 0.31 (< OR =4)
[2024-02-21] MEDS: cefTRIAXone SOD 1 GM in D5W MINI-BAG PLUS 50 ML IV ONE (23:40)
[2024-02-21] MEDS: DOXYCYCLINE HYCLATE 100 MG in D5W MINI-BAG PLUS 100 ML IV ONE (23:40)
[2024-02-21] MEDS: NS 1,000 ML IV ONE (23:41)
[2024-02-21] MEDS: NITROGLYCERIN 2% OINT 1 GM *U/D* PKT TOP ONE (23:56)
[2024-02-22] MEDS ORDERED: MAALOX 30 ML SUSP *UDC PO PRN (00:20)
[2024-02-22] MEDS ORDERED: ACETAMINOPHEN TAB 650MG DOSE (2X325MG) PO PRN (00:20)
[2024-02-22] MEDS: NS 1,000 ML IV SCH (00:20)
[2024-02-22] MEDS: BUDESONIDE 0.25 MG/2 ML INHALATION SUSPENSION INH SCH (00:51)
[2024-02-22] MEDS: IPRATROPIUM 0.5MG/ALBUTEROL 2.5MG INH SOL UD 3ML (DUONEB) NEB SCH ×2 (00:52→13:01)
[2024-02-22] MEDS ORDERED: GLUCAGON INJ 1MG VIAL SC PRN (01:05)
[2024-02-22] MEDS ORDERED: GLUCOSE 4 GM CHEW PO PRN (01:05)
[2024-02-22] MEDS ORDERED: DEXTROSE 50% 50ML SYRINGE IV PRN (01:05)
[2024-02-22 01:17] LABS: MAGNESIUM LEVEL 2.2 MG/DL (1.8-2.4)
[2024-02-22] MEDS: methylPREDNISolone 125MG 2ML VIAL IV SCH (01:20)
[2024-02-22 02:33] VITALS: BP 156/74; TEMP 98.1; O2SAT 93
[2024-02-22] MEDS: LEVALBUTEROL 1.25MG 0.5ML CONCENTRATE NEB INH PRN (04:58)
[2024-02-22 06:00] VITALS: BP 109/48; TEMP 98.1; O2SAT 98
[2024-02-22] MEDS: LEVOTHYROXINE 150MCG TABLET (0.15MG) PO SCH (06:00)
[2024-02-22 06:07] LABS: HEMATOCRIT 39.1 % (36.0-47.0); HEMOGLOBIN 12.8 g/dl (12.0-15.5); MEAN CORPUSCULAR HEMOGLOBIN 28.6 pg (27.0-33.0); MEAN CORPUSCULAR HGB CONC 32.7 g/dl (32.0-36.5); MEAN CORPUSCULAR VOLUME 87.3 fl (80.0-96.0); PLATELET COUNT, AUTOMATED 219 10^3/uL (150-450); RED BLOOD COUNT 4.48 10^6/uL (4.00-5.40); WHITE BLOOD COUNT 12.6 10^3/uL (4.0-10.0)
[2024-02-22 06:31] LABS: ALBUMIN 3.3 G/DL (3.2-5.2); BILIRUBIN,TOTAL 0.3 MG/DL (0.3-1.2); CALCIUM LEVEL 9.6 MG/DL (8.3-10.6); CREATININE FOR GFR 1.08 MG/DL (0.55-1.30); MAGNESIUM LEVEL 2.2 MG/DL (1.8-2.4); POTASSIUM SERUM 4.8 MMOL/L (3.5-5.1); TOTAL PROTEIN 6.5 G/DL (5.7-8.2)
[2024-02-22 06:46] LABS: LYMPHOCYTES 8 % (16-44); MONOCYTES 3 % (0-5); NEUTROPHILS 88 % (28-66)
[2024-02-22 06:47] LABS: PLATELET ESTIMATE NORMAL (NORMAL); POIKILOCYTOSIS 1+
[2024-02-22] MEDS: DOXYCYCLINE HYCLATE 100 MG in D5W MINI-BAG PLUS 100 ML IV SCH (08:45)
[2024-02-22] MEDS: INSULIN LISPRO (NovoLOG) PER UNIT SC SCH ×2 (08:46→21:15)
[2024-02-22] MEDS: PANTOPRAZOLE 40MG TAB (PROTONIX) PO SCH (08:49)
[2024-02-22] MEDS: LACTOBACILLUS ACIDOPHILUS CAP (BACID) PO SCH (08:52)
[2024-02-22] MEDS: ENOXAPARIN 40MG/0.4ML SYRINGE (J1650 PER 10MG) SC SCH (08:53)
[2024-02-22] MEDS: DOCUSATE SODIUM 100MG CAPSULE PO SCH (08:53)
[2024-02-22 09:00] VITALS: O2SAT 94
[2024-02-22] MEDS ORDERED: ATORVASTATIN 10 MG TAB PO SCH (09:00)
[2024-02-22] MEDS ORDERED: FISH100015 PO (09:08)
[2024-02-22] MEDS ORDERED: VITA200012 PO (09:08)
[2024-02-22] MEDS ORDERED: TRIA1CR80 TOP (09:08)
[2024-02-22] MEDS ORDERED: LEVO150T7 PO (09:08)
[2024-02-22] MEDS ORDERED: LOTE0.5O OD (09:08)
[2024-02-22] MEDS ORDERED: THERTAB19 PO (09:08)
[2024-02-22] MEDS ORDERED: BUTA1CAP4 PO (09:08)
[2024-02-22] MEDS ORDERED: ALLO300T2 PO (09:08)
[2024-02-22] MEDS ORDERED: ERGO500029 PO (09:08)
[2024-02-22] MEDS ORDERED: ALBU8.5H INH (09:11)
[2024-02-22] MEDS ORDERED: HOME MED LIST COMPLETE! XX SCH ×3 (09:15→16:00)
[2024-02-22] MEDS ORDERED: ROSU5TAB40 PO (10:17)
[2024-02-22] MEDS ORDERED: NYST-13 TOP (10:19)
[2024-02-22] MEDS ORDERED: BUDE10.2 INH (10:19)
[2024-02-22 12:58] LABS: CALCIUM LEVEL 9.8 MG/DL (8.3-10.6); CREATININE FOR GFR 1.14 MG/DL (0.55-1.30); GLOMERULAR FILTRATION RATE 48.8 (>32); POTASSIUM SERUM 4.8 MMOL/L (3.5-5.1)
[2024-02-22] MEDS: ONDANSETRON 4MG 2ML VIAL IV PRN (13:38)
[2024-02-22 14:00] VITALS: BP 133/63; TEMP 98.8; O2SAT 92
[2024-02-22 14:35] VITALS: O2SAT 92
[2024-02-22] MEDS ORDERED: PILL CUTTER 1 EACH XX PRN (15:35)
[2024-02-22] MEDS: ASPIRIN 325 MG TAB PO SCH (17:12)
[2024-02-22] MEDS: ROSUVASTATIN 10 MG TAB (CRESTOR) PO SCH (17:12)
[2024-02-22] MEDS: allopurinoL 300 MG TAB PO SCH (17:14)
[2024-02-22] MEDS: IPRATROPIUM 0.5MG/ALBUTEROL 2.5MG INH SOL UD 3ML (DUONEB) NEB PRN (19:37)
[2024-02-22 20:43] VITALS: BP 136/64; TEMP 98.6; O2SAT 91
[2024-02-22] MEDS: DEXTROMETHORPHAN 60MG/10ML SUSP 90ML BTL(DELSYM) PO PRN (21:56)
[2024-02-22] MEDS ORDERED: cefTRIAXone SOD 1 GM in D5W MINI-BAG PLUS 50 ML IV SCH (23:00)
[2024-02-23] MEDS: FLUTICASONE PROP 0.05% NASAL SPRAY 16 GM (FLONASE) NARES SCH (00:31)
[2024-02-23 05:51] VITALS: BP 119/47; TEMP 97.9; O2SAT 94
[2024-02-23 06:45] LABS: HEMATOCRIT 37.4 % (36.0-47.0); HEMOGLOBIN 12.1 g/dl (12.0-15.5); MEAN CORPUSCULAR HEMOGLOBIN 28.6 pg (27.0-33.0); MEAN CORPUSCULAR HGB CONC 32.4 g/dl (32.0-36.5); MEAN CORPUSCULAR VOLUME 88.4 fl (80.0-96.0); PLATELET COUNT, AUTOMATED 207 10^3/uL (150-450); RED BLOOD COUNT 4.23 10^6/uL (4.00-5.40); WHITE BLOOD COUNT 19.3 10^3/uL (4.0-10.0)
[2024-02-23 07:43] LABS: PROCALCITONIN 0.08 ng/ml
[2024-02-23 08:04] LABS: ALBUMIN 2.8 G/DL (3.2-5.2); BILIRUBIN,TOTAL 0.2 MG/DL (0.3-1.2); CALCIUM LEVEL 9.7 MG/DL (8.3-10.6); CREATININE FOR GFR 1.17 MG/DL (0.55-1.30); FREE T4 0.97 NG/DL (0.89-1.76); GLOMERULAR FILTRATION RATE 47.4 (>32); MAGNESIUM LEVEL 2.2 MG/DL (1.8-2.4); POTASSIUM SERUM 5.5 MMOL/L (3.5-5.1); THYROID STIMULATING HORMONE 0.075 uIU/ML (0.55-4.78); TOTAL PROTEIN 5.8 G/DL (5.7-8.2)
[2024-02-23] MEDS: methylPREDNISolone 125MG 2ML VIAL IV SCH (08:14)
[2024-02-23 08:16] LABS: C REACTIVE PROTEIN QUANTITATIV 0.5 MG/DL (<1.0)
[2024-02-23 10:19] LABS: HEMOGLOBIN A1c 6.8 % (4.0-6.0)
[2024-02-23] MEDS ORDERED: IPRATROPIUM 0.5MG/ALBUTEROL 2.5MG INH SOL UD 3ML (DUONEB) NEB PRN (11:50)
[2024-02-23 14:00] VITALS: BP 130/46; TEMP 97.9; O2SAT 90
[2024-02-23] MEDS: IPRATROPIUM 0.5MG/ALBUTEROL 2.5MG INH SOL UD 3ML (DUONEB) NEB SCH (14:49)
[2024-02-23] MEDS: FUROSEMIDE 40MG/4ML VIAL IV ONE (15:30)
[2024-02-23] MEDS: LEVEMIR (INSULIN DETEMIR) 1 UNITS/0.01ML SC SCH (21:24)
[2024-02-24] VITALS (7 sets, daily range): BP systolic 153–160; BP diastolic 74–77; TEMP 97.7–97.9; O2SAT 87–95
[2024-02-24 12:19] LABS: CREATININE FOR GFR 1.13 MG/DL (0.55-1.30); GLOMERULAR FILTRATION RATE 49.3 (>32); POTASSIUM SERUM 4.7 MMOL/L (3.5-5.1)
[2024-02-24] MEDS: TRIAMCINOLONE ACET 0.1% CREAM 80GM TOP PRN (18:32)
[2024-02-25] VITALS (7 sets, daily range): BP systolic 138–160; BP diastolic 68–80; TEMP 97.9–98.1; O2SAT 88–94
[2024-02-25 07:11] LABS: HEMATOCRIT 37.3 % (36.0-47.0); HEMOGLOBIN 12.2 g/dl (12.0-15.5); MEAN CORPUSCULAR HEMOGLOBIN 28.4 pg (27.0-33.0); MEAN CORPUSCULAR HGB CONC 32.7 g/dl (32.0-36.5); MEAN CORPUSCULAR VOLUME 86.9 fl (80.0-96.0); PLATELET COUNT, AUTOMATED 234 10^3/uL (150-450); RED BLOOD COUNT 4.29 10^6/uL (4.00-5.40); WHITE BLOOD COUNT 16.6 10^3/uL (4.0-10.0)
[2024-02-25 08:12] LABS: CALCIUM LEVEL 8.7 MG/DL (8.3-10.6); CREATININE FOR GFR 1.07 MG/DL (0.55-1.30); GLOMERULAR FILTRATION RATE 52.5 (>32); MAGNESIUM LEVEL 2.2 MG/DL (1.8-2.4); POTASSIUM SERUM 4.8 MMOL/L (3.5-5.1)
[2024-02-25] MEDS: FUROSEMIDE 40MG/4ML VIAL IV SCH (08:46)
[2024-02-25] MEDS ORDERED: FUROSEMIDE 40MG/4ML VIAL IV SCH (09:00)
[2024-02-25] MEDS ORDERED: SODIUM CHLORIDE 0.9% INJ 10 ML SYR IV PRN (14:45)
[2024-02-25] MEDS: SODIUM CHLORIDE 0.9% INJ 10 ML SYR IV SCH (17:26)
[2024-02-25] MEDS ORDERED: SODIUM CHLORIDE 0.9% INJ 10 ML SYR IV SCH (18:00)
[2024-02-25] MEDS: methylPREDNISolone 125MG 2ML VIAL IV SCH (21:21)
[2024-02-25] MEDS: SODIUM CHLORIDE 0.9% INJ 10 ML SYR IV PRN (21:22)
[2024-02-26] VITALS (11 sets, daily range): BP systolic 146–167; BP diastolic 73–80; TEMP 97.4–97.9; O2SAT 92–95
[2024-02-26 06:17] LABS: BASO % 0.2 % (0.0-1.0); HEMATOCRIT 39.1 % (36.0-47.0); HEMOGLOBIN 12.9 g/dl (12.0-15.5); LYMPH # 1.8 10^3/uL (1.5-5.0); LYMPH % 12.5 % (24.0-44.0); MEAN CORPUSCULAR HEMOGLOBIN 28.5 pg (27.0-33.0); MEAN CORPUSCULAR VOLUME 86.3 fl (80.0-96.0); MONO # 0.6 10^3/uL (0.0-0.8); MONO % 4.3 % (2.0-8.0); NEUTROPHILS # 11.5 10^3/uL (1.5-8.5); NEUTROPHILS % 80.8 % (36.0-66.0); PLATELET COUNT, AUTOMATED 234 10^3/uL (150-450); RED BLOOD COUNT 4.53 10^6/uL (4.00-5.40); WHITE BLOOD COUNT 14.3 10^3/uL (4.0-10.0)
[2024-02-26 06:48] LABS: CALCIUM LEVEL 9.2 MG/DL (8.3-10.6); GLOMERULAR FILTRATION RATE 56.8 (>32); POTASSIUM SERUM 4.6 MMOL/L (3.5-5.1)
[2024-02-26] MEDS: FUROSEMIDE 20 MG TAB PO SCH (08:15)
[2024-02-26] MEDS ORDERED: ISOVUE-370 76% 100ML VIAL As Ordered ONE (08:53)
[2024-02-26 09:10] LABS: MAGNESIUM LEVEL 2.4 MG/DL (1.8-2.4)
[2024-02-26] MEDS: MULTIVITAMINS/MINERALS THERAP 1 TAB PO SCH (09:59)
[2024-02-26] MEDS: CYANOCOBALAMIN 500 MCG TAB PO SCH (09:59)
[2024-02-26] MEDS: CO-ENZYME Q10 50 MG CAP PO SCH (09:59)
[2024-02-26] MEDS: VITAMIN D 1,000 INTERNATIONAL UNITS TABLET PO SCH (09:59)
[2024-02-26] MEDS: METAMUCIL (PSYLLIUM) PACKET PO SCH (09:59)
[2024-02-26] MEDS: OMEGA-3 1000MG CAPSULE PO SCH (10:46)
[2024-02-26] MEDS: cefTRIAXone SOD 1 GM in D5W MINI-BAG PLUS 50 ML IV SCH (13:04)
[2024-02-26] MEDS: DEXTROMETHORPHAN 60MG/10ML SUSP 90ML BTL(DELSYM) PO PRN (13:18)
[2024-02-26] MEDS: TIOTROPIUM INHALER/CAPSULE (SPIRIVA) INH SCH (13:23)
[2024-02-26] MEDS ORDERED: RAMELTEON 8 MG TAB (ROZEREM) PO PRN (21:00)
[2024-02-26] MEDS: RAMELTEON 8 MG TAB (ROZEREM) PO SCH (21:32)
[2024-02-26] MEDS: LATANOPROST 0.005% OPHTH SOLN 2.5 ML OU SCH (21:33)
[2024-02-27] VITALS (10 sets, daily range): BP systolic 128–142; BP diastolic 61–68; TEMP 97.5–98.1; O2SAT 86–94
[2024-02-27] MEDS: LEVOTHYROXINE 150MCG TABLET (0.15MG) PO SCH (05:44)
[2024-02-27 06:12] LABS: BASO # 0.1 10^3/uL (0.0-0.2); BASO % 0.3 % (0.0-1.0); EOS % 0.1 % (0.0-3.0); HEMATOCRIT 37.6 % (36.0-47.0); HEMOGLOBIN 12.2 g/dl (12.0-15.5); LYMPH # 2.1 10^3/uL (1.5-5.0); LYMPH % 12.1 % (24.0-44.0); MEAN CORPUSCULAR HEMOGLOBIN 28.3 pg (27.0-33.0); MEAN CORPUSCULAR HGB CONC 32.4 g/dl (32.0-36.5); MEAN CORPUSCULAR VOLUME 87.2 fl (80.0-96.0); MONO % 5.8 % (2.0-8.0); NEUTROPHILS # 13.5 10^3/uL (1.5-8.5); NEUTROPHILS % 78.7 % (36.0-66.0); PLATELET COUNT, AUTOMATED 223 10^3/uL (150-450); RED BLOOD COUNT 4.31 10^6/uL (4.00-5.40); WHITE BLOOD COUNT 17.1 10^3/uL (4.0-10.0)
[2024-02-27 06:31] LABS: CALCIUM LEVEL 8.7 MG/DL (8.3-10.6); CREATININE FOR GFR 1.02 MG/DL (0.55-1.30); GLOMERULAR FILTRATION RATE 55.5 (>32); POTASSIUM SERUM 4.9 MMOL/L (3.5-5.1)
[2024-02-27] MEDS: MOM 30ML SUSPENSION UDC PO PRN (08:21)
[2024-02-27] MEDS: SENNA 8.6 MG TAB (SENOKOT) PO SCH (09:49)
[2024-02-27 10:11] LABS: PROCALCITONIN 0.04 ng/ml
[2024-02-27] MEDS: AZITHROMYCIN 250MG TABLET PO SCH (14:53)
[2024-02-27] MEDS: LEVEMIR (INSULIN DETEMIR) 1 UNITS/0.01ML SC SCH (20:24)
[2024-02-27] MEDS ORDERED: LEVEMIR (INSULIN DETEMIR) 1 UNITS/0.01ML SC SCH (21:00)
[2024-02-28] VITALS (9 sets, daily range): BP systolic 130–140; BP diastolic 66–82; TEMP 97.5–97.9; O2SAT 92–97
[2024-02-28 06:15] LABS: BASO # 0.1 10^3/uL (0.0-0.2); BASO % 0.5 % (0.0-1.0); EOS % 0.2 % (0.0-3.0); HEMATOCRIT 38.6 % (36.0-47.0); HEMOGLOBIN 12.9 g/dl (12.0-15.5); LYMPH # 4.9 10^3/uL (1.5-5.0); LYMPH % 23.7 % (24.0-44.0); MEAN CORPUSCULAR HEMOGLOBIN 28.9 pg (27.0-33.0); MEAN CORPUSCULAR HGB CONC 33.4 g/dl (32.0-36.5); MEAN CORPUSCULAR VOLUME 86.4 fl (80.0-96.0); MONO # 2.6 10^3/uL (0.0-0.8); MONO % 12.8 % (2.0-8.0); NEUTROPHILS # 12.1 10^3/uL (1.5-8.5); NEUTROPHILS % 58.6 % (36.0-66.0); PLATELET COUNT, AUTOMATED 223 10^3/uL (150-450); RED BLOOD COUNT 4.47 10^6/uL (4.00-5.40); WHITE BLOOD COUNT 20.6 10^3/uL (4.0-10.0)
[2024-02-28 06:38] LABS: CREATININE FOR GFR 1.08 MG/DL (0.55-1.30); POTASSIUM SERUM 4.4 MMOL/L (3.5-5.1)
[2024-02-28] MEDS: methylPREDNISolone 40MG 1ML VIAL IV SCH (08:17)
[2024-02-28] MEDS: FUROSEMIDE 40MG/4ML VIAL IV ONE ×2 (09:43→20:09)
[2024-02-28] MEDS: ACETAMINOPH W/CODEINE #3 TAB UD PO SCH ×2 (12:04→15:21)
[2024-02-28] MEDS: MIRALAX *UNIT DOSE* 17GM PACKET PO PRN (13:16)
[2024-02-28] MEDS: KETOROLAC 30 MG/ML 1ML VIAL IV SCH (14:30)
[2024-02-29] VITALS (10 sets, daily range): BP systolic 102–138; BP diastolic 58–74; TEMP 97.5–97.9; O2SAT 89–98
[2024-02-29 05:45] LABS: BASO # 0.1 10^3/uL (0.0-0.2); BASO % 0.5 % (0.0-1.0); EOS # 0.2 10^3/uL (0.0-0.5); HEMATOCRIT 39.3 % (36.0-47.0); HEMOGLOBIN 12.9 g/dl (12.0-15.5); LYMPH # 5.2 10^3/uL (1.5-5.0); LYMPH % 27.9 % (24.0-44.0); MEAN CORPUSCULAR HEMOGLOBIN 28.7 pg (27.0-33.0); MEAN CORPUSCULAR HGB CONC 32.8 g/dl (32.0-36.5); MEAN CORPUSCULAR VOLUME 87.3 fl (80.0-96.0); MONO # 2.2 10^3/uL (0.0-0.8); MONO % 11.9 % (2.0-8.0); NEUTROPHILS # 10.1 10^3/uL (1.5-8.5); NEUTROPHILS % 54.3 % (36.0-66.0); PLATELET COUNT, AUTOMATED 214 10^3/uL (150-450); WHITE BLOOD COUNT 18.7 10^3/uL (4.0-10.0)
[2024-02-29 06:09] LABS: CALCIUM LEVEL 8.3 MG/DL (8.3-10.6); CREATININE FOR GFR 1.17 MG/DL (0.55-1.30); GLOMERULAR FILTRATION RATE 47.4 (>32); POTASSIUM SERUM 4.2 MMOL/L (3.5-5.1)
[2024-02-29] MEDS: predniSONE 20 MG TAB PO SCH (08:58)
[2024-02-29] MEDS: ACETAMINOPH W/CODEINE #3 TAB UD PO SCH (10:27)
[2024-02-29] MEDS: FUROSEMIDE 20 MG TAB PO SCH (12:39)
[2024-02-29] MEDS: LACTULOSE 20GM/30ML SYRUP UDC PO SCH (14:33)
[2024-02-29] MEDS: BENZONATATE 100MG CAPSULE PO PRN (20:51)
[2024-02-29] MEDS: SALIVA SUBSTITUTE(MOUTHKOTE) BTL MT PRN (20:53)
[2024-02-29] MEDS ORDERED: LEVEMIR (INSULIN DETEMIR) 1 UNITS/0.01ML SC SCH (21:00)
[2024-02-29] MEDS: MAGIC MOUTHWASH SUSPENSION BTL SS PRN (23:03)
[2024-03-01] VITALS (9 sets, daily range): BP systolic 132–150; BP diastolic 58–80; TEMP 96.8–97.6; O2SAT 81–94
[2024-03-01 06:24] LABS: BASO # 0.1 10^3/uL (0.0-0.2); BASO % 0.4 % (0.0-1.0); EOS # 0.1 10^3/uL (0.0-0.5); EOS % 0.4 % (0.0-3.0); HEMATOCRIT 38.9 % (36.0-47.0); HEMOGLOBIN 12.9 g/dl (12.0-15.5); LYMPH # 4.3 10^3/uL (1.5-5.0); LYMPH % 22.4 % (24.0-44.0); MEAN CORPUSCULAR HEMOGLOBIN 28.9 pg (27.0-33.0); MEAN CORPUSCULAR HGB CONC 33.2 g/dl (32.0-36.5); MONO # 2.1 10^3/uL (0.0-0.8); MONO % 10.8 % (2.0-8.0); NEUTROPHILS # 11.7 10^3/uL (1.5-8.5); NEUTROPHILS % 61.3 % (36.0-66.0); PLATELET COUNT, AUTOMATED 221 10^3/uL (150-450); RED BLOOD COUNT 4.47 10^6/uL (4.00-5.40); WHITE BLOOD COUNT 19.1 10^3/uL (4.0-10.0)
[2024-03-01 06:50] LABS: BLOOD UREA NITROGEN 36 MG/DL (9-23); CALCIUM LEVEL 8.8 MG/DL (8.3-10.6); CARBON DIOXIDE LEVEL 31 MMOL/L (20-31); CHLORIDE LEVEL 101 MMOL/L (98-107); GLOMERULAR FILTRATION RATE 50.9 (>32); GLUCOSE, FASTING 138 MG/DL (74-106); POTASSIUM SERUM 4.4 MMOL/L (3.5-5.1); SODIUM LEVEL 138 MMOL/L (136-145)
[2024-03-01 09:13] LABS: C REACTIVE PROTEIN QUANTITATIV < 0.40 MG/DL (<1.0)
[2024-03-01] MEDS: PIPERACILLIN/TAZOBACTAM SOD 3.375 GM in D5W MINI-BAG PLUS 50 ML IV SCH (09:14)
[2024-03-01 09:19] LABS: ERYTHROCYTE SEDIMENTATION RATE 17 mm/hr (0-30)
[2024-03-01 09:22] LABS: PROCALCITONIN 0.04 ng/ml
[2024-03-01] MEDS ORDERED: BISACODYL 10MG SUPP PR PRN (11:30)
[2024-03-01] MEDS: BISACODYL ENEMA 10MG/30ML PR ONE (12:06)
[2024-03-01] MEDS: BISACODYL 10MG SUPP PR SCH (13:54)
[2024-03-01] MEDS: METAMUCIL (PSYLLIUM) PACKET PO SCH (16:20)
[2024-03-01] MEDS: MIRALAX *UNIT DOSE* 17GM PACKET PO SCH (16:42)
[2024-03-01] MEDS: MOM 30ML SUSPENSION UDC PO SCH (16:50)
[2024-03-01] MEDS ORDERED: BISACODYL ENEMA 10MG/30ML PR SCH (21:00)
[2024-03-01] MEDS ORDERED: MIRALAX *UNIT DOSE* 17GM PACKET PO SCH (21:00)
[2024-03-01] MEDS ORDERED: METAMUCIL (PSYLLIUM) PACKET PO SCH (21:00)
[2024-03-01] MEDS: FLEET ENEMA PR PRN (22:36)
[2024-03-02] VITALS (8 sets, daily range): BP systolic 122–140; BP diastolic 68–82; TEMP 97.3–97.5; O2SAT 88–95
[2024-03-02 06:34] LABS: BASO % 0.2 % (0.0-1.0); HEMATOCRIT 40.3 % (36.0-47.0); HEMOGLOBIN 13.2 g/dl (12.0-15.5); LYMPH # 1.8 10^3/uL (1.5-5.0); LYMPH % 8.9 % (24.0-44.0); MEAN CORPUSCULAR HEMOGLOBIN 28.4 pg (27.0-33.0); MEAN CORPUSCULAR HGB CONC 32.8 g/dl (32.0-36.5); MEAN CORPUSCULAR VOLUME 86.9 fl (80.0-96.0); MONO # 1.2 10^3/uL (0.0-0.8); MONO % 5.8 % (2.0-8.0); NEUTROPHILS # 16.9 10^3/uL (1.5-8.5); PLATELET COUNT, AUTOMATED 219 10^3/uL (150-450); RED BLOOD COUNT 4.64 10^6/uL (4.00-5.40); WHITE BLOOD COUNT 20.6 10^3/uL (4.0-10.0)
[2024-03-02 06:52] LABS: CALCIUM LEVEL 8.4 MG/DL (8.3-10.6); CREATININE FOR GFR 1.2 MG/DL (0.55-1.30); POTASSIUM SERUM 4.5 MMOL/L (3.5-5.1)
[2024-03-02] MEDS: BISACODYL 10MG SUPP PR SCH (08:31)
[2024-03-02] MEDS: FLEET OIL RETENTION ENEMA PR SCH (10:15)
[2024-03-02] MEDS: SENOKOT S TAB PO SCH (11:54)
[2024-03-02] MEDS: GOLYTELY SOLN 4000 ML BTL PO ONE (18:47)
[2024-03-02] MEDS: NYSTATIN 100,000 UNITS/GM TOPICAL PWD 15GM TOP PRN (22:06)
[2024-03-03] VITALS (8 sets, daily range): BP systolic 128–146; BP diastolic 64–72; TEMP 97.5–97.9; O2SAT 86–94
[2024-03-03 07:03] LABS: HEMATOCRIT 40.2 % (36.0-47.0); HEMOGLOBIN 12.9 g/dl (12.0-15.5); MEAN CORPUSCULAR HEMOGLOBIN 27.9 pg (27.0-33.0); MEAN CORPUSCULAR HGB CONC 32.1 g/dl (32.0-36.5); MEAN CORPUSCULAR VOLUME 86.8 fl (80.0-96.0); PLATELET COUNT, AUTOMATED 207 10^3/uL (150-450); RED BLOOD COUNT 4.63 10^6/uL (4.00-5.40); WHITE BLOOD COUNT 21.4 10^3/uL (4.0-10.0)
[2024-03-03 07:25] LABS: CALCIUM LEVEL 8.8 MG/DL (8.3-10.6); CREATININE FOR GFR 1.24 MG/DL (0.55-1.30); GLOMERULAR FILTRATION RATE 44.3 (>32); POTASSIUM SERUM 4.2 MMOL/L (3.5-5.1)
[2024-03-03] MEDS: GASTROGRAFIN SOLUTION 30ML PO SCH (08:03)
[2024-03-03 08:07] LABS: ALBUMIN 2.6 G/DL (3.2-5.2); BILIRUBIN,DIRECT 0.2 MG/DL (<0.4); BILIRUBIN,TOTAL 0.6 MG/DL (0.3-1.2); TOTAL PROTEIN 5.7 G/DL (5.7-8.2)
[2024-03-03 08:08] LABS: BASO % 0.1 % (0.0-1.0); EOS # 0.1 10^3/uL (0.0-0.5); EOS % 0.2 % (0.0-3.0); LYMPH # 3.8 10^3/uL (1.5-5.0); LYMPH % 17.5 % (24.0-44.0); MONO # 2.2 10^3/uL (0.0-0.8); NEUTROPHILS # 15.1 10^3/uL (1.5-8.5); NEUTROPHILS % 69.9 % (36.0-66.0)
[2024-03-03] MEDS: predniSONE 10MG TAB PO SCH (11:32)
[2024-03-03] MEDS: LACTULOSE 20GM/30ML SYRUP UDC PO SCH (12:43)
[2024-03-03] MEDS: PIPERACILLIN/TAZOBACTAM SOD 3.375 GM in D5W MINI-BAG PLUS 50 ML IV SCH (12:57)
[2024-03-03] MEDS ORDERED: LACTULOSE 20GM/30ML SYRUP UDC PO SCH (16:00)
[2024-03-04 05:48] VITALS: BP 126/72; TEMP 98.2; O2SAT 93
[2024-03-04 06:00] LABS: BASO % 0.1 % (0.0-1.0); EOS # 0.1 10^3/uL (0.0-0.5); EOS % 0.3 % (0.0-3.0); HEMATOCRIT 36.4 % (36.0-47.0); HEMOGLOBIN 11.9 g/dl (12.0-15.5); LYMPH # 3.4 10^3/uL (1.5-5.0); LYMPH % 22.3 % (24.0-44.0); MEAN CORPUSCULAR HEMOGLOBIN 28.3 pg (27.0-33.0); MEAN CORPUSCULAR HGB CONC 32.7 g/dl (32.0-36.5); MEAN CORPUSCULAR VOLUME 86.5 fl (80.0-96.0); MONO # 1.7 10^3/uL (0.0-0.8); MONO % 11.3 % (2.0-8.0); NEUTROPHILS # 9.9 10^3/uL (1.5-8.5); NEUTROPHILS % 64.6 % (36.0-66.0); PLATELET COUNT, AUTOMATED 183 10^3/uL (150-450); RED BLOOD COUNT 4.21 10^6/uL (4.00-5.40); WHITE BLOOD COUNT 15.3 10^3/uL (4.0-10.0)
[2024-03-04 06:28] LABS: CALCIUM LEVEL 8.3 MG/DL (8.3-10.6); CREATININE FOR GFR 1.26 MG/DL (0.55-1.30); GLOMERULAR FILTRATION RATE 43.5 (>32); MAGNESIUM LEVEL 2.6 MG/DL (1.8-2.4); POTASSIUM SERUM 3.9 MMOL/L (3.5-5.1)
[2024-03-04 08:23] VITALS: O2SAT 94
[2024-03-04 14:00] VITALS: BP 132/60; TEMP 97.9; O2SAT 96
[2024-03-04 21:35] VITALS: BP 124/72; TEMP 97.9; O2SAT 91
[2024-03-04 21:51] VITALS: BP 124/72
[2024-03-05 06:19] VITALS: BP 140/80; TEMP 97.9; O2SAT 93
[2024-03-05] MEDS ORDERED: SENN-52 PO (12:26)
[2024-03-05] MEDS ORDERED: PRED10TA2 PO (12:26)
[2024-03-05] MEDS ORDERED: MIRA33506 PO (12:26)
== END 2024-03-05 16:39 | disposition home or self-care (01) | DRG 202 ==
LOC: M ED 21:31 → EDBD 21:31 → M ED INP 23:53 → ENRESERV 02-22 01:53 → M MSPAV 02-22 02:35
PROVIDERS: ADMIT Internal Medicine; ATTEND Internal Medicine
DX: J45.31 Mild persistent asthma with (acute) exacerbation (principal); J96.01 Acute respiratory failure with hypoxia; I50.23 Acute on chronic systolic (congestive) heart failure; I13.0 Hypertensive heart and chronic kidney disease with heart failure and stage 1 through stage 4 chronic kidney disease, or unspecified chronic kidney disease; E87.20 Acidosis, unspecified; J44.1 Chronic obstructive pulmonary disease with (acute) exacerbation; E87.1 Hypo-osmolality and hyponatremia; J20.4 Acute bronchitis due to parainfluenza virus; K21.9 Gastro-esophageal reflux disease without esophagitis; I16.0 Hypertensive urgency; E11.65 Type 2 diabetes mellitus with hyperglycemia; E11.39 Type 2 diabetes mellitus with other diabetic ophthalmic complication; N18.30 Chronic kidney disease, stage 3 unspecified; E11.22 Type 2 diabetes mellitus with diabetic chronic kidney disease; H40.9 Unspecified glaucoma; E03.9 Hypothyroidism, unspecified; E78.5 Hyperlipidemia, unspecified; D72.829 Elevated white blood cell count, unspecified; K59.00 Constipation, unspecified; E55.9 Vitamin D deficiency, unspecified; M10.9 Gout, unspecified; Z88.2 Allergy status to sulfonamides; Z88.8 Allergy status to other drugs, medicaments and biological substances; Z79.899 Other long term (current) drug therapy; Z79.82 Long term (current) use of aspirin; Z86.16 Personal history of COVID-19; I65.29 Occlusion and stenosis of unspecified carotid artery; I25.10 Atherosclerotic heart disease of native coronary artery without angina pectoris; M17.11 Unilateral primary osteoarthritis, right knee; G47.33 Obstructive sleep apnea (adult) (pediatric); Z98.41 Cataract extraction status, right eye; Z98.42 Cataract extraction status, left eye; E87.5 Hyperkalemia; I70.1 Atherosclerosis of renal artery; Z85.850 Personal history of malignant neoplasm of thyroid

== ENCOUNTER → 2024-02-21 | Outpatient (CLI) | payer MEDICARE, OTHER ==
[~2024-02-21] MED LIST changes: +ALBU2.5V10 INH; +ALBU8.5H INH; +ALLO10TA PO; +ALLO300T2 PO; +AMOX875T PO; +ATOR1TAB19 PO; +BENZ200C70 PO; +BUDE10.2 INH; +BUTA1CAP4 PO; +ERGO500029 PO; +FISH100015 PO; +FURO20TA2 PO; +IRBE300T25 PO; +LOTE0.5O OD; +NYST-13 TOP; +PRED10TA2 PO; +ROSU5TAB5 PO; +THERTAB19 PO; +TIOT18INH INH; +TRIA1CR80 TOP; +VITA200012 PO
== END ==
LOC: M WUC 13:25
PROVIDERS: ATTEND Nurse Practitioner Adult Health
DX: R05.9 Cough, unspecified (principal); R91.8 Other nonspecific abnormal finding of lung field; J84.9 Interstitial pulmonary disease, unspecified

== ENCOUNTER → 2024-04-08 | Outpatient (CLI) | payer MEDICARE, OTHER ==
[~2024-04-08] MED LIST changes: +ALBU2.5V10 INH; +ALBU8.5H INH; +ALLO10TA PO; +ALLO300T2 PO; +AMOX875T PO; +ATOR1TAB19 PO; +BENZ200C70 PO; +BUDE10.2 INH; +BUTA1CAP4 PO; +ERGO500029 PO; +FISH100015 PO; +FURO20TA2 PO; +IRBE300T25 PO; +LOTE0.5O OD; +MIRA33506 PO; +NYST-13 TOP; +PRED10TA2 PO; +ROSU5TAB40 PO; +SENN-52 PO; +THERTAB19 PO; +TIOT18INH INH; +TRIA1CR80 TOP; +VITA200012 PO
== END ==
LOC: M PLAIMG 13:41
PROVIDERS: ATTEND Nurse Practitioner Adult Health
DX: R91.8 Other nonspecific abnormal finding of lung field (principal)

== ENCOUNTER → 2024-04-29 | Outpatient (CLI) | payer MEDICARE, OTHER | LOC: M SLEEP 20:00 | PROVIDERS: ATTEND Internal Medicine Pulmonary Disease | DX: G47.33 Obstructive sleep apnea (adult) (pediatric) (principal) ==

== ENCOUNTER → 2024-07-05 | Outpatient (CLI) | payer MEDICARE, OTHER | LOC: M SLEEP 20:00 | PROVIDERS: ATTEND Internal Medicine Critical Care Medicine | DX: G47.33 Obstructive sleep apnea (adult) (pediatric) (principal) ==

== ENCOUNTER → 2024-08-05 | Outpatient (CLI) | payer MEDICARE, OTHER ==
[2024-08-05 13:25] LABS: BASO # 0.1 10^3/uL (0.0-0.2); BASO % 0.9 % (0.0-1.0); EOS # 0.3 10^3/uL (0.0-0.5); EOS % 3.7 % (0.0-3.0); HEMATOCRIT 40.4 % (36.0-47.0); HEMOGLOBIN 13.1 g/dl (12.0-15.5); LYMPH # 2.4 10^3/uL (1.5-5.0); LYMPH % 34.4 % (24.0-44.0); MEAN CORPUSCULAR HEMOGLOBIN 28.9 pg (27.0-33.0); MEAN CORPUSCULAR HGB CONC 32.4 g/dl (32.0-36.5); MONO # 1.3 10^3/uL (0.0-0.8); MONO % 18.1 % (2.0-8.0); NEUTROPHILS % 42.8 % (36.0-66.0); PLATELET COUNT, AUTOMATED 215 10^3/uL (150-450); RED BLOOD COUNT 4.54 10^6/uL (4.00-5.40)
[2024-08-05 13:48] LABS: C REACTIVE PROTEIN QUANTITATIV < 0.40 MG/DL (<1.0); MALB URINE SIEMENS < 3.0 MG/L
[2024-08-05 13:50] LABS: ALBUMIN 3.6 G/DL (3.2-5.2); ALKALINE PHOSPHATASE 118 U/L (46-116); ALT/SGPT 19 U/L (7.0-40); AST/SGOT 11 U/L (<34); BILIRUBIN,TOTAL 0.4 MG/DL (0.3-1.2); BLOOD UREA NITROGEN 36 MG/DL (9-23); CALCIUM LEVEL 10.3 MG/DL (8.3-10.6); CARBON DIOXIDE LEVEL 28 MMOL/L (20-31); CHLORIDE LEVEL 109 MMOL/L (98-107); CHOLESTEROL LEVEL 126 MG/DL (<200); CHOLESTEROL RISK RATIO 3.24 (<5); CREATININE FOR GFR 1.18 MG/DL (0.55-1.30); GLOMERULAR FILTRATION RATE 46.9 (>32); GLUCOSE, FASTING 133 MG/DL (74-106); HDL CHOLESTEROL 38.8 MG/DL (>40); LDL CHOLESTEROL 54.2 MG/DL (<100); NON-HDL-C 87.2 MG/DL; POTASSIUM SERUM 4.4 MMOL/L (3.5-5.1); SODIUM LEVEL 140 MMOL/L (136-145); TOTAL PROTEIN 6.8 G/DL (5.7-8.2); TRIGLYCERIDES LEVEL 165 MG/DL (<150)
[2024-08-05 13:51] LABS: FREE T4 1.89 NG/DL (0.89-1.76); THYROID STIMULATING HORMONE 0.076 uIU/ML (0.55-4.78); VITAMIN B12 LEVEL 589 PG/ML (211-911)
[2024-08-05 13:52] LABS: TOTAL 25(OH) VITAMIN D 108.6 NG/ML (20.0-100.0)
[2024-08-05 14:10] LABS: CREATININE, URINE 144.9 MG/DL
[2024-08-05 14:13] LABS: HEMOGLOBIN A1c 6.9 % (4.0-6.0)
== END ==
LOC: M WUC 09:12
PROVIDERS: ATTEND Internal Medicine Hematology
DX: E11.9 Type 2 diabetes mellitus without complications (principal)

== ENCOUNTER → 2024-09-09 | Outpatient (REF) | payer MEDICARE, OTHER ==
[~2024-09-09] MED LIST changes: -ROSU5TAB40 PO; +ROSU5TAB49 PO
== END ==
LOC: M SFHCPLAZ 16:48
PROVIDERS: ATTEND Physician Assistant Medical
DX: J06.9 Acute upper respiratory infection, unspecified (principal)

== ENCOUNTER → 2024-12-02 | Outpatient (CLI) | payer MEDICARE, OTHER | LOC: M PLAIMG 14:07 | PROVIDERS: ATTEND Physician Assistant Medical | DX: M47.814 Spondylosis without myelopathy or radiculopathy, thoracic region (principal); M54.6 Pain in thoracic spine ==

== ENCOUNTER → 2024-12-11 | Outpatient (CLI) | payer MEDICARE, OTHER | LOC: M WUC 15:03 | PROVIDERS: ATTEND Internal Medicine Hematology | DX: M89.8X1 Other specified disorders of bone, shoulder (principal); M85.88 Other specified disorders of bone density and structure, other site; M47.9 Spondylosis, unspecified ==

== ENCOUNTER → 2024-12-18 | Outpatient (REF) | payer MEDICARE, OTHER | LOC: M LABWUC 16:14 | PROVIDERS: ATTEND Internal Medicine Hematology | DX: E03.9 Hypothyroidism, unspecified (principal) ==

== ENCOUNTER → 2024-12-18 | Outpatient (REF) | payer MEDICARE, OTHER ==
[2024-12-18 16:23] LABS: HEMATOCRIT 40.2 % (36.0-47.0); HEMOGLOBIN 12.9 g/dl (12.0-15.5); MEAN CORPUSCULAR HEMOGLOBIN 28.2 pg (27.0-33.0); MEAN CORPUSCULAR HGB CONC 32.1 g/dl (32.0-36.5); PLATELET COUNT, AUTOMATED 239 10^3/uL (150-450); RED BLOOD COUNT 4.57 10^6/uL (4.00-5.40); WHITE BLOOD COUNT 6.8 10^3/uL (4.0-10.0)
[2024-12-18 16:30] LABS: ALBUMIN 3.5 G/DL (3.2-5.2); BILIRUBIN,TOTAL 0.4 MG/DL (0.3-1.2); CALCIUM LEVEL 10.3 MG/DL (8.3-10.6); CREATININE FOR GFR 1.34 MG/DL (0.55-1.30); GLOMERULAR FILTRATION RATE 40.4 (>32); POTASSIUM SERUM 4.6 MMOL/L (3.5-5.1); TOTAL PROTEIN 6.9 G/DL (5.7-8.2)
[2024-12-18 16:31] LABS: INR 0.92; PROTHROMBIN TIME 12.7 SECONDS (12.5-14.5)
[2024-12-18 16:38] LABS: ERYTHROCYTE SEDIMENTATION RATE 37 mm/hr (0-30)
== END ==
LOC: M LABWUC 16:13
PROVIDERS: ATTEND Orthopaedic Surgery
DX: Z01.812 Encounter for preprocedural laboratory examination (principal); M17.11 Unilateral primary osteoarthritis, right knee; Z79.01 Long term (current) use of anticoagulants; E03.9 Hypothyroidism, unspecified

== ENCOUNTER → 2024-12-30 | Outpatient (CLI) | payer MEDICARE, OTHER ==
[2024-12-30 19:04] LABS: ALBUMIN 3.8 G/DL (3.2-5.2); CALCIUM LEVEL 10.5 MG/DL (8.3-10.6); CREATININE FOR GFR 1.38 MG/DL (0.55-1.30); GLOMERULAR FILTRATION RATE 39.1 (>32); PHOSPHORUS LEVEL 3.6 MG/DL (2.4-5.1); POTASSIUM SERUM 4.7 MMOL/L (3.5-5.1)
== END ==
LOC: M WUC 13:42
PROVIDERS: ATTEND Student in an Organized Health Care Education/Training Program
DX: Z01.818 Encounter for other preprocedural examination (principal)

== ENCOUNTER → 2025-02-25 | Outpatient (CLI) | payer MEDICARE, OTHER ==
[~2025-02-25] MED LIST changes: -FISH100015 PO; +FISH100019 PO; -NYST-13 TOP; +NYST0.1C TOP
[2025-02-25 16:54] LABS: ALBUMIN 3.6 G/DL (3.2-5.2); CALCIUM LEVEL 10.5 MG/DL (8.3-10.6); CREATININE FOR GFR 1.44 MG/DL (0.55-1.30); GLOMERULAR FILTRATION RATE 36.5 (>32); PHOSPHORUS LEVEL 3.5 MG/DL (2.4-5.1); POTASSIUM SERUM 4.5 MMOL/L (3.5-5.1)
== END ==
LOC: M PLALAB 13:19
PROVIDERS: ATTEND Student in an Organized Health Care Education/Training Program
DX: R06.00 Dyspnea, unspecified (principal)

== ENCOUNTER → 2025-02-25 | Outpatient (CLI) | payer MEDICARE, OTHER ==
[~2025-02-25] MED LIST changes: +ISOVUE-370 76% 100 ML VIAL As Ordered ONE
== END ==
LOC: M RAD 13:47
PROVIDERS: ATTEND Student in an Organized Health Care Education/Training Program
DX: R06.00 Dyspnea, unspecified (principal)

== ENCOUNTER → 2025-03-03 | Outpatient (REF) | payer MEDICARE, OTHER ==
[~2025-03-03] MED LIST changes: +FISH100015 PO; -FISH100019 PO; -ISOVUE-370 76% 100 ML VIAL As Ordered ONE
== END ==
LOC: M SFHCPLAZ 16:39
PROVIDERS: ATTEND Student in an Organized Health Care Education/Training Program
DX: Z53.21 Procedure and treatment not carried out due to patient leaving prior to being seen by health care provider (principal)

== ENCOUNTER → 2025-03-16 | Outpatient (CLI) | payer MEDICARE, OTHER ==
[~2025-03-16] MED LIST changes: -FISH100015 PO; +FISH100019 PO
[2025-03-16 18:08] LABS: BASO # 0.1 10^3/uL (0.0-0.2); BASO % 0.9 % (0.0-1.0); EOS # 0.2 10^3/uL (0.0-0.5); EOS % 3.1 % (0.0-3.0); HEMOGLOBIN 12.2 g/dl (12.0-15.5); LYMPH # 1.8 10^3/uL (1.5-5.0); LYMPH % 26.6 % (24.0-44.0); MEAN CORPUSCULAR HEMOGLOBIN 28.2 pg (27.0-33.0); MEAN CORPUSCULAR HGB CONC 31.3 g/dl (32.0-36.5); MEAN CORPUSCULAR VOLUME 90.3 fl (80.0-96.0); MONO # 1.3 10^3/uL (0.0-0.8); NEUTROPHILS # 3.4 10^3/uL (1.5-8.5); NEUTROPHILS % 50.1 % (36.0-66.0); PLATELET COUNT, AUTOMATED 265 10^3/uL (150-450); RED BLOOD COUNT 4.32 10^6/uL (4.00-5.40); WHITE BLOOD COUNT 6.7 10^3/uL (4.0-10.0)
[2025-03-16 18:12] LABS: ALBUMIN 3.9 G/DL (3.2-5.2); ALKALINE PHOSPHATASE 97 U/L (35-104); ALT/SGPT 19 U/L (7.0-40); AST/SGOT 16 U/L (<34); BILIRUBIN,TOTAL 0.3 MG/DL (0.3-1.2); BLOOD UREA NITROGEN 22 MG/DL (9-23); C REACTIVE PROTEIN QUANTITATIV < 0.50 MG/DL (<1.0); CARBON DIOXIDE LEVEL 28 MMOL/L (20-31); CHLORIDE LEVEL 105 MMOL/L (98-107); GLOMERULAR FILTRATION RATE 45.5 (>32); GLUCOSE, FASTING 123 MG/DL (74-106); POTASSIUM SERUM 4.6 MMOL/L (3.5-5.1); RHEUMATOID FACTOR QUANT < 3.5 IU/ML (<14); SODIUM LEVEL 142 MMOL/L (136-145)
[2025-03-16 18:21] LABS: ERYTHROCYTE SEDIMENTATION RATE 32 mm/hr (0-30)
[2025-03-19 14:47] LABS: ANA SCREEN, IFA NEGATIVE (NEGATIVE)
== END ==
LOC: M WUC 14:32
PROVIDERS: ATTEND Physician Assistant
DX: M19.011 Primary osteoarthritis, right shoulder (principal); M85.811 Other specified disorders of bone density and structure, right shoulder

== ENCOUNTER → 2025-06-25 | Outpatient (CLI) | payer MEDICARE, OTHER ==
[2025-06-25 17:37] LABS: BASO # 0.1 10^3/uL (0.0-0.2); BASO % 0.9 % (0.0-1.0); EOS # 0.2 10^3/uL (0.0-0.5); EOS % 3.3 % (0.0-3.0); LYMPH # 1.5 10^3/uL (1.5-5.0); LYMPH % 26.0 % (24.0-44.0); MONO # 1.0 10^3/uL (0.0-0.8); MONO % 16.7 % (2.0-8.0); NEUTROPHILS # 3.0 10^3/uL (1.5-8.5); NEUTROPHILS % 52.8 % (36.0-66.0); PLATELET COUNT, AUTOMATED 223 10^3/uL (150-450)
[2025-06-25 18:28] LABS: ALT/SGPT 17.0 U/L (7.0-40); AST/SGOT 18.0 U/L (<34); CALCIUM LEVEL 10.2 MG/DL (8.3-10.6); CARBON DIOXIDE LEVEL 28.0 MMOL/L (20-31); CHLORIDE LEVEL 107.0 MMOL/L (98-107); CHOLESTEROL LEVEL 203.0 MG/DL (<200); CHOLESTEROL RISK RATIO 5.06 (<5); CREATININE FOR GFR 1.26 MG/DL (0.55-1.30); FREE T4 1.62 NG/DL (0.89-1.76); GLOMERULAR FILTRATION RATE 42.9 (>32); LDL CHOLESTEROL 130.3 MG/DL (<100); NON-HDL-C 162.9 MG/DL; POTASSIUM SERUM 4.8 MMOL/L (3.5-5.1); SODIUM LEVEL 144.0 MMOL/L (136-145); TRIGLYCERIDES LEVEL 163.0 MG/DL (<150)
[2025-06-25 19:05] LABS: ESTIMATED AVERAGE GLUCOSE 137.0 MG/DL (60-110)
[2025-06-30 20:08] LABS: LYME TOTAL ANTIBODY CIA <= 0.90 Index (<=0.90)
== END ==
LOC: M WUC 11:46
PROVIDERS: ATTEND Student in an Organized Health Care Education/Training Program
DX: Z00.00 Encounter for general adult medical examination without abnormal findings (principal); E89.0 Postprocedural hypothyroidism; R53.82 Chronic fatigue, unspecified; I10 Essential (primary) hypertension

== ENCOUNTER → 2025-07-17 | Outpatient (CLI) | payer MEDICARE, OTHER | LOC: M WUC 15:49 | PROVIDERS: ATTEND Student in an Organized Health Care Education/Training Program | DX: Z13.9 Encounter for screening, unspecified (principal); R53.82 Chronic fatigue, unspecified ==

== ENCOUNTER → 2025-07-17 | Outpatient (CLI) | payer MEDICARE, OTHER ==
[2025-07-17 19:17] LABS: CORTISOL BASELINE 6.7 UG/DL (4.3-22.4); LDH LACTATE DEHYDROGENASE 152 U/L (120-246)
[2025-07-17 19:18] LABS: C REACTIVE PROTEIN QUANTITATIV < 0.50 MG/DL (<1.0); CPK CREATINE PHOSPHOKINASE 54 U/L (34-145)
[2025-07-20 15:19] LABS: ALDOLASE 3.8 U/L (< OR = 8.1)
== END ==
LOC: M WUC 15:47
PROVIDERS: ATTEND Internal Medicine Critical Care Medicine
DX: Z13.9 Encounter for screening, unspecified (principal); R53.83 Other fatigue; M17.12 Unilateral primary osteoarthritis, left knee

== ENCOUNTER → 2025-07-17 | Outpatient (CLI) | payer MEDICARE, OTHER ==
[2025-07-17 18:57] LABS: BASO # 0.0 10^3/uL (0.0-0.2); BASO % 0.6 % (0.0-1.0); EOS # 0.2 10^3/uL (0.0-0.5); EOS % 2.9 % (0.0-3.0); LYMPH # 1.8 10^3/uL (1.5-5.0); LYMPH % 27.5 % (24.0-44.0); MONO # 0.9 10^3/uL (0.0-0.8); MONO % 13.7 % (2.0-8.0); NEUTROPHILS # 3.6 10^3/uL (1.5-8.5); NEUTROPHILS % 55.0 % (36.0-66.0); PLATELET COUNT, AUTOMATED 260 10^3/uL (150-450)
[2025-07-17 19:12] LABS: ERYTHROCYTE SEDIMENTATION RATE 23 mm/hr (0-30)
[2025-07-17 19:18] LABS: C REACTIVE PROTEIN QUANTITATIV < 0.50 MG/DL (<1.0); CALCIUM LEVEL 9.9 MG/DL (8.3-10.6); CARBON DIOXIDE LEVEL 27 MMOL/L (20-31); CHLORIDE LEVEL 109 MMOL/L (98-107); CREATININE FOR GFR 1.15 MG/DL (0.55-1.30); GLOMERULAR FILTRATION RATE 47.9 (>32); POTASSIUM SERUM 4.5 MMOL/L (3.5-5.1); SODIUM LEVEL 142 MMOL/L (136-145)
[2025-07-17 19:21] LABS: RHEUMATOID FACTOR QUANT < 3.5 IU/ML (<14)
== END ==
LOC: M WUC 15:51
PROVIDERS: ATTEND Student in an Organized Health Care Education/Training Program
DX: M17.12 Unilateral primary osteoarthritis, left knee (principal)

== ENCOUNTER → 2025-08-27 | Outpatient (CLI) | payer MEDICARE, OTHER ==
[~2025-08-27] MED LIST changes: +ASPI81TA26 PO; +DULO30CA9 PO; +SPIR1AER INH
[2025-08-27 13:02] LABS: CORTISOL AM 13.3 UG/DL (4.3-22.4)
[2025-08-27 13:04] LABS: MAGNESIUM LEVEL 2.0 MG/DL (1.8-2.4); PHOSPHORUS LEVEL 3.5 MG/DL (2.4-5.1)
[2025-08-27 13:08] LABS: VITAMIN B12 LEVEL 601 PG/ML (211-911)
== END ==
LOC: M WUC 09:03
PROVIDERS: ATTEND Student in an Organized Health Care Education/Training Program
DX: R53.82 Chronic fatigue, unspecified (principal); M62.81 Muscle weakness (generalized)

== ENCOUNTER 2025-08-31 13:34 | Observation (INO) | payer MEDICARE, OTHER ==
[~2025-08-31] VITALS: Ht 170.2 cm; Wt 87.3 kg
[~2025-08-31 13:34] MED LIST changes: -ASPI81TA26 PO; -DULO30CA9 PO; -SPIR1AER INH
[2025-08-31] MEDS ORDERED: ISOVUE-370 76% 100 ML VIAL As Ordered ONE (14:38)
[2025-08-31 14:45] LABS: BASO # 0.0 10^3/uL (0.0-0.2); BASO % 0.4 % (0.0-1.0); EOS # 0.1 10^3/uL (0.0-0.5); EOS % 0.9 % (0.0-3.0); LYMPH # 1.8 10^3/uL (1.5-5.0); LYMPH % 26.6 % (24.0-44.0); MONO # 1.0 10^3/uL (0.0-0.8); MONO % 15.3 % (2.0-8.0); NEUTROPHILS # 3.8 10^3/uL (1.5-8.5); NEUTROPHILS % 56.4 % (36.0-66.0); PLATELET COUNT, AUTOMATED 243 10^3/uL (150-450)
[2025-08-31 15:06] LABS: FREE T4 1.58 NG/DL (0.89-1.76)
[2025-08-31 15:21] LABS: INR 0.99
[2025-08-31] MEDS: ASPIRIN 81 MG CHEWABLE TABLET PO ONE (15:56)
[2025-08-31] MEDS ORDERED: ASPI81TA26 PO (16:48)
[2025-08-31] MEDS ORDERED: SPIR1AER INH (16:48)
[2025-08-31] MEDS ORDERED: DULO30CA9 PO (16:49)
[2025-08-31] MEDS ORDERED: HOME MED LIST COMPLETE! XX SCH (16:50)
[2025-08-31] MEDS ORDERED: LEVO175T2 PO (17:29)
[2025-08-31 18:02] LABS: ALT/SGPT 17 U/L (7.0-40); AST/SGOT 20 U/L (<34); C REACTIVE PROTEIN QUANTITATIV < 0.50 MG/DL (<1.0); CALCIUM LEVEL 10.5 MG/DL (8.3-10.6); CARBON DIOXIDE LEVEL 26 MMOL/L (20-31); CHLORIDE LEVEL 106 MMOL/L (98-107); CHOLESTEROL LEVEL 202 MG/DL (<200); CHOLESTEROL RISK RATIO 4.73 (<5); CREATININE FOR GFR 1.36 MG/DL (0.55-1.30); GLOMERULAR FILTRATION RATE 39.1 (>32); LDL CHOLESTEROL 133.1 MG/DL (<100); NON-HDL-C 159.3 MG/DL; POTASSIUM SERUM 4.7 MMOL/L (3.5-5.1); SODIUM LEVEL 143 MMOL/L (136-145); TRIGLYCERIDES LEVEL 131 MG/DL (<150)
[2025-08-31 18:34] LABS: ESTIMATED AVERAGE GLUCOSE 128.0 MG/DL (60-110)
[2025-08-31] MEDS: SYMBICORT 160/4.5MCG INHALER 6GM INH SCH (20:38)
[2025-08-31 21:40] VITALS: BP 159/70; TEMP 97.9; O2SAT 95
[2025-08-31] MEDS: LATANOPROST 0.005% OPHTH SOLN 2.5 ML OU SCH (22:53)
[2025-09-01 03:59] VITALS: BP 116/79; TEMP 97.9; O2SAT 96
[2025-09-01] MEDS: LEVOTHYROXINE 75 MCG TABLET (0.075 MG) PO SCH (06:12)
[2025-09-01] MEDS: LEVOTHYROXINE 100 MCG TABLET (0.1 MG) PO SCH (06:12)
[2025-09-01 06:54] LABS: PLATELET COUNT, AUTOMATED 210 10^3/uL (150-450)
[2025-09-01 07:17] LABS: CALCIUM LEVEL 9.8 MG/DL (8.3-10.6); CARBON DIOXIDE LEVEL 24.0 MMOL/L (20-31); CHLORIDE LEVEL 106.0 MMOL/L (98-107); CREATININE FOR GFR 1.18 MG/DL (0.55-1.30); GLOMERULAR FILTRATION RATE 46.4 (>32); MAGNESIUM LEVEL 2.2 MG/DL (1.8-2.4); POTASSIUM SERUM 5.0 MMOL/L (3.5-5.1); SODIUM LEVEL 141.0 MMOL/L (136-145)
[2025-09-01] MEDS: TIOTROPIUM BROM 2.5MCG/ACTUATION 4GM INH INH SCH (07:47)
[2025-09-01 08:28] VITALS: BP 127/57
[2025-09-01] MEDS: CYANOCOBALAMIN 500 MCG TAB PO SCH (08:28)
[2025-09-01] MEDS: IRBESARTAN 150 MG TAB PO SCH (08:28)
[2025-09-01] MEDS: PANTOPRAZOLE 40MG TAB PO SCH (08:28)
[2025-09-01] MEDS: ASPIRIN 325 MG TAB PO SCH (08:28)
[2025-09-01] MEDS: ENOXAPARIN 40 MG/0.4 ML SYRINGE (J1650 PER 10MG) SC SCH (08:29)
[2025-09-01 12:00] VITALS: BP 123/45; TEMP 97.9; O2SAT 99
[2025-09-01] MEDS ORDERED: ROSU20TA86 PO (16:19)
[2025-09-01] MEDS ORDERED: AVAP150T31 PO (16:19)
== END 2025-09-01 16:55 | disposition home or self-care (01) ==
LOC: M ED 13:34 → M ED INP 20:07 → INTOOBSV 20:07 → M MSPAV 21:47
PROVIDERS: ADMIT Family Medicine; ATTEND Internal Medicine Nephrology
DX: G45.9 Transient cerebral ischemic attack, unspecified (principal); E11.9 Type 2 diabetes mellitus without complications; N18.30 Chronic kidney disease, stage 3 unspecified; E78.00 Pure hypercholesterolemia, unspecified; E55.9 Vitamin D deficiency, unspecified; K21.9 Gastro-esophageal reflux disease without esophagitis; E03.9 Hypothyroidism, unspecified; J30.9 Allergic rhinitis, unspecified; I77.9 Disorder of arteries and arterioles, unspecified; N32.81 Overactive bladder; G47.33 Obstructive sleep apnea (adult) (pediatric); R53.1 Weakness; Z79.899 Other long term (current) drug therapy
CPT/HCPCS: 36415; 70450; 70496; 70498; 70551; 71045; 80047; 80048; 80053; 80061; 83036; 83735; 84439; 84443; 85025; 85027; 85610; 85730; 86140; 93005; 93041; 93306; 94640; 94760; 99285; G0378; Q9967

== ENCOUNTER 2025-09-08 20:00 | Outpatient (CLI) | payer MEDICARE, OTHER ==
[~2025-09-08 20:00] MED LIST changes: +ASPI81TA26 PO; +AVAP150T31 PO; +DULO30CA9 PO; +ROSU20TA86 PO; +SPIR1AER INH
== END 2025-09-09 15:00 ==
LOC: M SLEEP 20:00
PROVIDERS: ATTEND Internal Medicine Critical Care Medicine
DX: G47.33 Obstructive sleep apnea (adult) (pediatric) (principal); G47.61 Periodic limb movement disorder; Z79.899 Other long term (current) drug therapy

== ENCOUNTER → 2025-09-22 | Outpatient (CLI) | payer MEDICARE, OTHER | LOC: M PLAIMG 12:08 | PROVIDERS: ATTEND Orthopaedic Surgery | DX: M75.51 Bursitis of right shoulder (principal); M75.41 Impingement syndrome of right shoulder; M75.121 Complete rotator cuff tear or rupture of right shoulder, not specified as traumatic; M75.21 Bicipital tendinitis, right shoulder ==